=== PATIENT | male | born 1980 | race African-American/Black ===

== ENCOUNTER 2022-02-16 04:31 | Emergency (ER) | payer SELFPAY ==
[2022-02-16 04:37] VITALS: BP 177/111; PULSE 88; RESP 16; TEMP 37; O2SAT 99
--- NOTE | 2022-02-16 05:08 | ED.GENADULT ---
HPI - General Adult General Chief complaint: Extremity Injury, Lower Stated complaint: L lower extremity pain, sciatica? Time Seen by Provider: 02/16/22 04:52 History of Present Illness HPI narrative: This is a 41-year-old male presenting ED with a chief complaint of leg pain. Pain patient says that he has pain that is 10 in his left glute and radiates down the back of his leg. Patient weight lifts on a daily basis. He has never experienced pain like this before. Patient denies numbness tingling weakness. He denies urinary retention, loss of bowel continence, IV drug abuse, history of cancer, trauma fever chills. Patient is also complaining of pain beneath his testicles. patient is denies dysuria, hematuria, penile discharge. He denies history of STDs. He does have a history of an enlarged prostate but he has not had any issues lately. Related Data Home Medications Medication Instructions Recorded Confirmed lisinopril 10 1 tablet PO DAILY 02/16/22 mg-hydrochlorothiazide 12.5 mg tablet Allergies Allergy/AdvReac Type Severity Reaction Status Date / Time No Known Allergies Allergy Verified 02/16/22 04:47 Review of Systems Review of Systems: CONSTITUTIONAL: Denies night sweats. EYES: No eye pain ENT: Denies rhinorrhea CARDIOVASCULAR: Denies palpitations RESPIRATORY: Denies hemoptysis GASTROINTESTINAL: Denies hematemesis GENITOURINARY: Denies hematuria. SKIN: Denies rash MUSCULOSKELETAL: Denies myalgia. NEUROLOGIC: Denies weakness. PSYCHIATRIC: Denies delusions PMFSH Past Medical History Medical History Biceps muscle tear Enlarged prostate HTN (hypertension) Social History Social History (Updated 02/16/22 @ 05:54 by Stuart Morataya MD) Social History: patient denies use of alcohol tobacco or drugs Exam Narrative: APPEARANCE: No apparent distress. Head atraumatic. EYES: PERRLA/EOMI, NOSE: Normal no drainage NECK: Supple, Trachea midline RESPIRATORY: CTAB, No increased work of breathing. CARDIOVASCULAR: S1S2 appreciated ABDOMINAL: Soft, nontender, nondistended, Genital exam: no tenderness to palpation of the testicles. No swelling. Normal lie. There is no crepitus or evidence of infection. Rectal exam: revealed normal rectal tone but a tender prostate. MUSCULOSKELETAl: No obvious deformities NEURO: Alert. Cranial nerves 2-12 grossly intact. Sensation light touch, motor function cerebellar function intact for 4 extremities. Gait exam was normal. SKIN:: Warm, dry. Normal color PSYCHIATRIC: Normal affect Course Vital Signs Vital signs: Vital Signs Temperature 98.6 F 02/16/22 04:37 Pulse Rate 88 02/16/22 04:37 Respiratory Rate 16 02/16/22 04:37 Blood Pressure 177/111 H 02/16/22 04:37 Pulse Oximetry 99 02/16/22 04:37 Oxygen Delivery Room Air 02/16/22 04:37 Temperature 98.6 F 02/16/22 04:37 Pulse Rate 88 02/16/22 04:37 Respiratory Rate 16 02/16/22 04:37 Blood Pressure 177/111 H 02/16/22 04:37 Pulse Oximetry 99 02/16/22 04:37 Oxygen Delivery Room Air 02/16/22 04:37 Medical Decision Making MDM Narrative Medical decision making narrative: Was the patient is presenting with 2 different complaints. First complaint of pain shooting through his left glute and down his legs consistent with sciatica. we treated him with Motrin, Tylenol Robaxin and he had improvement of his pain. Patient's 2nd complaint had to do with pain beneath his testicles. Differential includes prostatitis, urinary tract infection, Sung's. A urinalysis was ordered. Urine was cloudy with +1 leuk esterase, 11-20 urine red blood cells and 31-50 white blood cells. At this time the patient's findings are concerning for prostatitis. when I questioned the patient about history of STDs he informed me that his partner had recently cheated on him and that he is concerned that this may be due to STDs.
[2022-02-16] MEDS: IBUPROFEN 400 MG TABLET 800 MG PO (05:15)
[2022-02-16] MEDS: methocarbamoL 750 MG TABLET 1500 MG PO (05:16)
[2022-02-16] MEDS: ACETAMINOPHEN 500 MG TABLET 1000 MG PO (05:16)
[2022-02-16 05:32] LABS: Appearance Urine Cloudy (Clear); Bilirubin Urine Negative (Negative); Blood Urine Negative (Negative); Color Urine Yellow (Yellow); Glucose Urine UA Negative (Negative); Ketones Urine Trace mg/dL (Negative); Leukocyte Esterase Ur 1+ LEU/UL (Negative); Nitrate Urine Negative (Negative); Protein Urine 1+ mg/dL (Negative)
[2022-02-16 05:36] LABS: Mucus Urine Rare /lpf; Squamous Epithelial Cell Urine Rare /hpf (Few); WBC Urine 31-50 /hpf
[2022-02-16 05:37] LABS: Add Urine Microscopic? YES
[2022-02-16] MEDS: cefTRIAXone 1 GM VIAL 0.5 GM IM (05:54)
[2022-02-16] MEDS: metroNIDAZOLE 250 MG TABLET 2000 MG PO (05:55)
[2022-02-16] MEDS: DOXYCYCLINE HYCLATE 100 MG TABLET PO (05:55)
== END 2022-02-16 06:24 | disposition home or self-care (01) ==
PROVIDERS: Emergency Provider Emergency Medicine
DX: M54.32 Sciatica, left side (principal); N41.0 Acute prostatitis; Z20.2 Contact with and (suspected) exposure to infections with a predominantly sexual mode of transmission; N40.0 Benign prostatic hyperplasia without lower urinary tract symptoms; I10 Essential (primary) hypertension
CPT/HCPCS: 81001; 87077; 87086; 87088; 87186; 87491; 87591; 96372; 99283; A9270; J0696

== ENCOUNTER 2025-05-02 08:52 | Inpatient (IN) | payer BC, SELFPAY ==
[2025-05-02] VITALS (9 sets, daily range): BP systolic 97–164; BP diastolic 67–96; PULSE 110–130; RESP 18–30; TEMP 37.1–39.8; O2SAT 93–99; BMI 30.6
--- NOTE | ~2025-05-02 | CT_ITS ---
EXAMINATION: CTA chest PE abdomen pel DATE: 05/02/2025 10:39 INDICATION: D-dimer and fever TECHNIQUE: Computed tomography angiography (CTA) of the chest was performed with 100 mL Omnipaque-350 intravenous contrast timed to evaluate the pulmonary arteries. Coronal maximum intensity projection 3D-reconstructions were created by the technologist. Computed tomography (CT) of the abdomen and pelvis was performed with intravenous contrast. The dose-length product was 2010.23 mGy-cm. COMPARISON: None. FINDINGS: CTA chest: No central or large pulmonary emboli present. Segmental and smaller sized pulmonary arteries somewhat poorly evaluated due to sharp tapering; mild to moderate cardiomegaly and mildly enlarged central and main pulmonary arteries. Pulmonary arterial enlargement may be associated with pulmonary arterial hypertension. No thoracic artery aneurysm or dissection. No pericardial effusion or bulky lymphadenopathy. Central large airways are patent. Mild atelectatic appearing changes but the lungs are otherwise clear. 10 mm granulomatous benign nodule left lung base. No acute process seen in the visualized portions of the upper abdomen, bony thorax or extrathoracic soft tissues. CT ABDOMEN AND PELVIS: No acute arterial occlusion seen. The bowel gas pattern is nonobstructive with no free air free fluid or pneumatosis. The urinary bladder is mildly distended. Mild urinary bladder wall thickening appears to be present. Normal size appendix, aorta and gallbladder. Pancreas spleen stomach and adrenal glands appear within normal limits. 2 cm simple right renal cyst. No hydroureteronephrosis or obstructing ureteral stones. No kidney or bladder stones. No bulky mesenteric or retroperitoneal lymphadenopathy or masses seen. Prostate size normal. Diffuse degenerative changes throughout the lumbar spine and hips. IMPRESSION: 1. No central or large pulmonary emboli. 2. Mild to moderate cardiomegaly. Mildly enlarged central and main pulmonary arteries which could be associated pulmonary arterial hypertension. No gross acute intrathoracic process. 3. Mildly distended urinary bladder with possible mild wall thickening. Correlate with urinalysis. 4. No acute surgical abnormality seen in the abdomen or pelvis. Reviewed, dictated and finalized at location A. [facility] IMPRESSION: 1. No central or large pulmonary emboli. 2. Mild to moderate cardiomegaly. Mildly enlarged central and main pulmonary ar teries which could be associated pulmonary arterial hypertension. No gross acut e intrathoracic process. 3. Mildly distended urinary bladder with possible mild wall thickening. Correla te with urinalysis. 4. No acute surgical abnormality seen in the abdomen or pelvis.
--- NOTE | ~2025-05-02 | XR_ITS ---
Examination: XR chest 1V portable Clinical History: SOB and Tachycardic Comparison: 05/02/2025 Technique: Portable AP Findings: Cardiomegaly. Lungs clear. No acute bony abnormality. IMPRESSION: 1. No acute cardiopulmonary findings given portable technique. Reviewed, dictated and finalized at location R. ER POT
--- NOTE | ~2025-05-02 | XR_ITS ---
Examination: XR chest 1V portable Clinical History: SOB, HEART ATTACK 2 YEARS AGO, CP Comparison: None Technique: Portable AP Findings: Heart size prominent. Lungs clear. No acute bony abnormality. IMPRESSION: 1. Cardiac silhouette mildly prominent. Pericardial effusion and/or cardiomegaly not excluded. 2. Lungs clear. Reviewed, dictated and finalized at location R. OVOLTAIC POWER SYSTEMS ENGINEER IMPRESSION: 1. Cardiac silhouette mildly prominent. Pericardial effusion and/or cardiomega ly not excluded. 2. Lungs clear.
--- NOTE | 2025-05-02 09:03 | ED.GENADULT ---
HPI - General Adult General Chief complaint: Shortness of Breath/Dyspnea Stated complaint: SOB Time Seen by Provider: 05/02/25 08:55 History of Present Illness HPI narrative: 44-year-old male presents to the emergency department for evaluation for shortness of breath patient reports prior to arrival he had onset shortness of breath chills and patient was febrile upon arrival to the emergency department. Patient denies any recent illnesses. Patient does report prior history of urinary retention. Related Data Home Medications ?Medication ?Instructions ?Recorded ?Confirmed ?Last Taken ?Type atorvastatin 80 mg tablet 80 mg PO DAILY 05/02/25 05/02/25 05/01/25 21:48 History azelastine 137 mcg (0.1 %) nasal 1 spray intranasal Q12H PRN 05/02/25 05/02/25 04/25/25 08:49 History spray congestion lisinopril 20 mg tablet 20 mg PO DAILY 05/02/25 05/02/25 05/02/25 History metformin 500 mg tablet 500 mg PO DAILY 05/02/25 05/02/25 05/02/25 History Allergies Allergy/AdvReac Type Severity Reaction Status Date / Time No Known Allergies Allergy Verified 05/02/25 15:43 Review of Systems Review of Systems: All systems reviewed & are unremarkable except as noted in HPI and below PMFSH Past Medical History Medical History Biceps muscle tear Enlarged prostate HTN (hypertension) Social History Social History (Updated 02/16/22 @ 05:54 by Stuart Morataya MD) Social History: patient denies use of alcohol tobacco or drugs Smoking status: Never smoker Alcohol intake: never Substance use: never Lack of Transportation: No Lack of Food: Never True Current Housing: I Have Housing Concerned About Future Housing: No Difficulty Paying Gas/Electric Bills: No Difficulty Paying for Meds: No Currently Unemployed: No Education: Trade/Vocational Certificate Difficulty w/ Childcare or Family Care: No Spiritual care concerns: No Exam Narrative: APPEARANCE: Ill-appearing HEAD: normocephalic, atraumatic. EYES: PERRLA/EOMI, conjunctivae clear. NOSE: Normal no drainage EARS:TMS clear with good light reflex. THROAT: Pharynx clear, no exudate. NECK: Supple. No adenopathy, no masses. RESPIRATORY: Airway patent, respirations nonlabored. Clear to auscultation bilaterally, no rales, rhonchi, wheezing. CARDIOVASCULAR: Regular rate and rhythm without murmurs rubs or gallops. ABDOMINAL: Soft, nontender, nondistended, normal bowel sounds MUSCULOSKELETAL: Moves all extremities. Strength/ROM intact, No edema, No calf tenderness. NEURO: Alert. Cranial nerves II through XII intact. Good gait. Good coordination SKIN: Warm, dry. Normal Color Course Vital Signs Vital signs: Vital Signs Temperature 103.6 F H 05/02/25 08:57 Pulse Rate 130 H 05/02/25 08:57 Respiratory Rate 19 05/02/25 08:57 Pulse Oximetry 99 05/02/25 08:57 Oxygen Delivery Room Air 05/02/25 08:57 Temperature 98.8 F 05/02/25 11:00 Pulse Rate 111 H 05/02/25 14:45 Respiratory Rate 27 H 05/02/25 14:45 Blood Pressure 120/74 05/02/25 14:45 Pulse Oximetry 96 05/02/25 14:45 Oxygen Delivery Room Air 05/02/25 09:18 MDM MDM Narrative Medical decision making narrative: 44-year-old male presents to the with evaluation of fever and urinary tension. Patient is currently afebrile with no leukocytosis hemoglobin of 14.2. Patient has elevated D-dimer but CT was negative for pulmonary embolism. Patient was negative for gonorrhea chlamydia influenza a influenza B RSV and COVID. UA was positive for urinary tract infection. Patient was treated with 1 g of IV Rocephin the emergency department. Patient was also treated with 1 g of Tylenol. Patient was treated with 2 L of lactated Ringer's. On re-evaluation patient is resting more comfortably. Patient was offered admission for pyelonephritis but patient declines and prefers to be discharged to home. Patient and family were updated the results of the workup and the importance of return to the emergency department if he has any worsening symptoms. Patient was also be provided outpatient follow-up with Urology. Patient did have greater than 300 mL of retained urine. Believe patient's respiratory symptoms were secondary to the fever and tachycardia. At time of re-evaluation patient denies any chest pain or shortness of breath. Patient's urine is significant for a UTI. Prior to discharge patient did change his mind and decided he would stay for further IV antibiotics. Patient still declines the Hughes catheter placement. Case was discussed with the hospitalist patient was accepted for admission. Differential Diagnosis Differential Diagnosis: Pneumonia, COVID, RSV, influenza, gonorrhea, chlamydia, urinary tract infection, urinary retention Lab Data [facility] Lab Attestation statement: I personally reviewed the patient's lab results. 05/02/25 09:14 05/02/25 09:14 Labs: Lab Results 05/02/25 05/02/25 05/02/25 Range/Units 09:14 09:50 11:57 WBC 3.3 L (4.5-10.0) K/mm3 RBC 5.15 (4.6-6.20) M/mm3 Hgb 14.2 (14.0-18.0) g/dL Hct 43.7 (42.0-52.0) % MCV 84.9 (80-100) fl MCH 27.6 (26-34) pg MCHC 32.5 (32-36) g/dl RDW 15.3 H (11.5-14.5) % Plt Count 188 (150-375) k/mm3 MPV 9.6 (7.4-10.4) fl Immature Gran % (Auto) 0.3 (0-0.5) % Neut % (Auto) 81.6 H (45.5-73.1) % Lymph % (Auto) 16.3 L (18.3-44.2) % [place] % (Auto) 0.3 L (2.6-8.5) % Eos % (Auto) 1.2 (0-4.4) % Baso % (Auto) 0.3 (0.2-1.2) % Lymph # (Auto) 0.53 L (0.9-3.2) K/mm3 [place] # (Auto) 0.0 L (0.1-0.6) K/mm3 Eos # (Auto) 0.0 (0-0.3) K/mm3 Baso # (Auto) 0.0 (0.0-0.1) K/mm3 Abs Immat Gran (auto) 0.01 (0.00-0.031) K/mm3 Absolute Neuts (auto) 2.7 (1.3-6.7) K/mm3 Absolute Nucleated RBC 0.000 (0.0-0.012) K/mm3 Nucleated RBC % 0.0 (0.0-0.2) % PT 13.6 (11.1-14.7) Seconds INR 1.0 APTT 24.2 (22.3-36.8) Seconds D-Dimer 0.93 H (<0.48) ug/mL Sodium 143 (137-145) mmol/L Potassium 3.9 (3.4-5.0) mmol/L Chloride 105 (98-107) mmol/L Carbon Dioxide 28 (22-30) mmol/L Anion Gap 10 (4-12) mmol/L BUN 16 (9-20) mg/dL Creatinine 1.34 H (0.7-1.3) mg/dL Estim Creat Clear Calc 70 ml/min Estimated GFR 57 L (59 - ) Glucose 99 (65-110) mg/dL Lactic Acid 2.6 H 1.5 (0.7-2.0) mmol/L Calcium 9.3 (8.4-10.2) mg/dL Magnesium 1.8 (1.6-2.3) mg/dL Total Bilirubin 0.8 (0.2-1.3) mg/dL AST 52 (17-59) U/L ALT 43 (6-50) U/L Alkaline Phosphatase 89 (38-126) U/L Total Protein 7.9 (6.3-8.2) g/dL Albumin 4.5 (3.5-5.1) g/dL TSH (Reflex) 0.887 (0.465-4.68) uIU/mL Urine Color Yellow (Yellow) Urine Appearance Cloudy H (Clear) Urine pH 7.0 (5.0-9.0) Ur Specific [place] 1.018 (1.001-1.035) Urine Protein Trace (Negative) mg/dL Urine Glucose (UA) Negative (Negative) mg/dL Urine Ketones Trace H (Negative) mg/dL Ur Blood (Man) Non-hemolyzed trace (Negative) Urine Nitrate Positive H (Negative) Urine Bilirubin Negative (Negative) Urine Urobilinogen 1.0 (<2.0) mg/dL Leukocyte Esterase Rfl 2+ H (Negative) CHARANJIT/UL Urine RBC 0-2 (0-2) /hpf Urine WBC >100 H (0-3) /hpf Ur Squamous Epith Cells None seen (Few) /hpf Urine Bacteria 4+ H /hpf Urine Casts 0-2 C. trachomatis (PCR) Not detected (NOT DETECTE) Influenza A (RT-PCR) Negative (Negative) Influenza B (RT-PCR) Negative (Negative) N. gonorrhoeae (PCR) Not detected (NOT DETECTE) RSV (RT-PCR) Negative (Negative) SARS-CoV-2 RNA (RT-PCR) Negative (Negative) Imaging Data Radiologist's impression: ITS Impressions Chest X-Ray 05/02/25 09:27 IMPRESSION: 1. Cardiac silhouette mildly prominent. Pericardial effusion and/or cardiomegaly not excluded. 2. Lungs clear. Chest/Abdomen/Pelvis CTA 05/02/25 10:45 IMPRESSION: 1. No central or large pulmonary emboli. 2. Mild to moderate cardiomegaly. Mildly enlarged central and main pulmonary arteries which could be associated pulmonary arterial hypertension. No gross acute intrathoracic process. 3. Mildly distended urinary bladder with possible mild wall thickening. Correlate with urinalysis. 4. No acute surgical abnormality seen in the abdomen or pelvis. Discharge Plan Discharge Clinical Impression: Acute UTI Sepsis Qualifiers: Sepsis type: sepsis due to unspecified organism Sepsis acute organ dysfunction status: without acute organ dysfunction Qualified Code(s): A41.9 - Sepsis, unspecified organism Patient Disposition: Still a Patient Condition: Stable
--- NOTE | 2025-05-02 09:04 | ECG_ITS ---
Test Date: 2025-05-02 09:06:21 Measurements Intervals [place] Rate: 127 P: 53 MS: 156 QRS: -34 QRSD: 117 T: 79 QT: 313 QTc: 456 Interpretive Statements SINUS TACHYCARDIA LEFT AXIS DEVIATION INTRAVENTRICULAR CONDUCTION DELAY LEFT VENTRICULAR HYPERTROPHY NONSPECIFIC T-WAVE ABNORMALITY- HIGH LATERAL LEADS BASELINE ARTIFACT- I, II, III, AVR, AVL, AVF, V1-V ABNORMAL ECG No previous ECG available for comparison Electronically Signed On 05-02-2025 09:11:26 OVERLOCK COLLAR SETTER by Sanchez Tatum D.O.
[2025-05-02] MEDS: LACTATED RINGERS 1,000 ML 999 ML IV CONT ×2 (09:08)
[2025-05-02] MEDS: ACETAMINOPHEN 500 MG TABLET 1000 MG PO (09:08)
[2025-05-02] MEDS: ONDANSETRON INJ 4 MG/2 ML VIAL IV PUSH (09:13)
[2025-05-02 09:22] LABS: Hematocrit 43.7 % (42.0-52.0); Hemoglobin 14.2 g/dL (14.0-18.0); Immature Granulocyte Percent A 0.3 % (0-0.5); Lymphocytes Absolute Auto 0.53 K/mm3 (0.9-3.2); Mean Corpuscular HGB Conc 32.5 g/dl (32-36); Mean Corpuscular Hemoglobin 27.6 pg (26-34); Mean Corpuscular Volume 84.9 fl (80-100); Nucleated Red Blood Cells Absolute Auto 0.000 K/mm3 (0.0-0.012); Nucleated Red Blood Cells Perc 0.0 % (0.0-0.2); Platelet Count Result 188 k/mm3 (150-375); Red Blood Count 5.15 M/mm3 (4.6-6.20); White Blood Count 3.3 K/mm3 (4.5-10.0)
[2025-05-02 09:37] LABS: INR 1.0; Prothrombin Time 13.6 Seconds (11.1-14.7)
[2025-05-02 09:38] LABS: Partial Thromboplastin Time 24.2 Seconds (22.3-36.8)
[2025-05-02 09:45] LABS: Alanine Aminotransferase 43 U/L (6-50); Albumin Level 4.5 g/dL (3.5-5.1); Alkaline Phosphatase 89 U/L (38-126); Anion Gap 10 mmol/L (4-12); Aspartate Amino Transferase 52 U/L (17-59); Bilirubin,Total 0.8 mg/dL (0.2-1.3); Blood Urea Nitrogen 16 mg/dL (9-20); Calcium 9.3 mg/dL (8.4-10.2); Carbon Dioxide 28 mmol/L (22-30); Chloride 105 mmol/L (98-107); Estimated CRCL calculation 70 ml/min; Estimated Glomerular Filt Rate 57; Glucose 99 mg/dL (65-110); Magnesium 1.8 mg/dL (1.6-2.3); Potassium 3.9 mmol/L (3.4-5.0); Sodium 143 mmol/L (137-145); Total Protein 7.9 g/dL (6.3-8.2)
[2025-05-02 09:58] LABS: Influenza A QL RT-PCR Negative (Negative); Influenza B QL RT-PCR Negative (Negative); RSV RNA, RT-PCR Negative (Negative); SARS-CoV-2 RNA PCR Negative (Negative)
[2025-05-02 10:01] LABS: Add Urine Microscopic? YES; Appearance Urine Cloudy (Clear); Glucose Urine UA Negative (Negative); Leukocyte Esterase Ur 2+ LEU/UL (Negative); Nitrate Urine Positive (Negative); Non Pathogenic Casts 0-2; Specific Grav Ur 1.018 (1.001-1.035)
[2025-05-02 10:14] LABS: Thyroid Stimulating Hormone Reflex 0.887 uIU/mL (0.465-4.68)
[2025-05-02] MEDS: ACETAMINOPHEN 650 MG SUPPOSITORY RECTAL (10:24)
--- OUTSIDE RECORDS SUMMARY | 2025-05-02 10:40 | XMS_ITS | Encounter Summary ---
Author Organization [facility] Address [facility] [place] [address] Care Team Providers Care Peach Grower Name Role Phone Taryn Mcneal MD Primary Care Provider [phone] Encounter Details Date Type Department Care Team (Latest Contact Info) Description 08/18/2024 AzulStart Message Enc [facility] Multispec[facility] - [place] [address] [place] [address] [address] [place] [address] Taryn Mcneal MD [address] [facility] [address] [place], [place] [id number] Missed appointment Social History Tobacco Use Types Packs/Day Years Used Date Smoking Tobacco: Never Smokeless Tobacco: Never Comments:Counseled by dr Susanna cassidy Alcohol Use Standard Drinks/Week Comments Never 0 (1 standard drink = 0.6 oz pur e alcohol) PHQ-2 Answer Date Recorded Patient Health Questionnaire-2 Score 0 07/12/2024 Sex and Gender Information Value Date Recorded Sex Assigned at Male 06/16/2024 10:06 AM PROCESSOR INSPECTOR Legal Sex Male 10:00 AM PROCESSOR INSPECTOR Gender Identity Male 07/12/2024 2:46 PM PROCESSOR INSPECTOR Sexual Orientation Straight 07/12/2024 2: 46 PM PROCESSOR INSPECTOR documented as of this encounter Progress Notes * Rosy Rainey - 08/21/2024 7:24 AM CDT Attempted to call patient to schedule. Voicemail was full so unable to leave message. documented in this encounter Plan of Treatment Upcoming Encounters Date Type Department Care Team (Late st Contact Info) Description 06/21/2025 11:00 AM PROCESSOR INSPECTOR Office Visit [facility] [address] [place] [address] Jostin Thompson MD [address] [place] [address] 08/03/2025 3:20 PM CDT Office Visit [facility] - [place] [address] [address] [place] [address] Taryn Mcneal MD [address] [place] [id number] documented as of this encounter Visit Diagnoses Not on filedocumented in this encounter Additional Health Concerns Assessment Noted Time PHQ-9 Depression Total Score: 1 08/16/19 24 7:46 AM CDT documented as of this encounter Care Teams Peach Grower Relationship Specialty Start Date End Date Taryn Mcneal MD [address] [place] [id number] PCP - General INTERNAL MEDICINE 07/06/22 documented as of this encounter
--- OUTSIDE RECORDS SUMMARY | 2025-05-02 10:40 | XMS_ITS | Encounter Summary ---
Author Organization [facility] Address [facility] [place] [address] Care Team Providers Care Motor Vehicle Clerk Name Role Phone Taryn Mcneal MD Primary Care Provider [phone] Encounter Details Date Type Department Care Team (Late st Contact Info) Description 01/20/2025 MyChart Message Enc [facility] Multispecialty Care - [place] [address] [place] [address] [address] [place], [place] [id number] Taryn Mcneal MD [address] [facility] [address] [place] [address] Eye drops Social History Tobacco Use Types Packs/Day Years Used Date Smoking Tobacco: Never Smokeless Tobacco: Never Comments:Counseled by dr Susanna cassidy Alcohol Use Standard Drinks/Week Comments Never 0 (1 standard drink = 0.6 oz pur e alcohol) PHQ-2 Answer Date Recorded Patient Health Questionnaire-2 Score 0 01/19/2025 Sex and Gender Information Value Date Recorded Sex Assigned at Male 06/16/2024 10:06 AM WASTEWATER DESIGN ENGINEER Legal Sex Male 10:00 AM WASTEWATER DESIGN ENGINEER Gender Identity Male 07/12/2024 2:46 PM WASTEWATER DESIGN ENGINEER Sexual Orientation Straight 07/12/2024 2: 46 PM WASTEWATER DESIGN ENGINEER documented as of this encounter Plan of Treatment Upcoming Encounters Date Type Department Care Team (Late st Contact Info) Description 06/21/2025 11:00 AM WASTEWATER DESIGN ENGINEER [facility] [address] Jostin Thompson MD [facility] [address] [place] [address] 08/03/2025 3:20 PM CDT Office Visit [facility] Multispecialty Care - [place] [address] [address] [place] [address] Taryn Mcneal MD [address] [place] [id number] documented as of this encounter Visit Diagnoses Not on filedocumented in this encounter Additional Health Concerns Assessment Noted Time PHQ-9 Depression Total Score: 2 01/20/20 25 3:51 PM CDT documented as of this encounter Care Teams Motor Vehicle Clerk Relationship Specialty Start Date End Date Taryn Mcneal MD [address] [place] [id number] PCP - General INTERNAL MEDICINE 07/06/22 documented as of this encounter
--- OUTSIDE RECORDS SUMMARY | 2025-05-02 10:40 | XMS_ITS | Clinical Summary ---
Author Organization [facility] Address [address] [place] [address] Care Team Providers Care Byproducts Extractor Name Role Phone Taryn Mcneal MD Primary Care Provider [phone] Allergies No known active allergies Medications ASPIRIN 81 OR Take 81 mg by mouth daily. Active olopatadine (PATANOL) 0.1 % ophthalmic solutionIndication s:Seasonal allergies Place 1 drop into both eyes 2 (two) times daily. 5 mL 6 01/20/20 25 Active Roflumilast 0.15 % CreamIndications:P soriasis Apply 1 Application topically daily. 60 g 3 01/20/20 25 Active lisinopril (PRINIVIL) 20 MG tabletIndications: Primary hypertension Take 1 tablet (20 mg total) by mouth daily. 90 tablet 1 01/20/20 25 Active metFORMIN (GLUCOPHAGE) 500 MG tabletIndications: Prediabetes Take 1 tablet (500 mg total) by mouth daily with breakfast. 90 tablet 1 01/20/20 25 Active montelukast (SINGULAIR) 10 MG tabletIndications: Seasonal allergies Take 1 tablet (10 mg total) by mouth nightly at bedtime. 90 tablet 1 01/20/20 25 Active metoprolol succinate ER (TOPROL-XL) 25 MG 24 hr tabletIndications: Primary hypertension Take 1 tablet (25 mg total) by mouth daily. 90 tablet 1 02/15/20 25 Active fluticasone propionate (FLONASE) 50 MCG/ACT nasal sprayIndications:S easonal allergies 2 sprays by Nasal route daily. 48 mL 3 02/15/20 25 Active famotidine (PEPCID) 20 MG tabletIndications: Gastroesophageal reflux disease without esophagitis Take 1 tablet (20 mg total) by mouth 2 (two) times daily as needed for Heartburn. 60 tablet 5 02/15/20 25 Active azelastine (ASTELIN) 0.1 % nasal sprayIndications:S easonal allergies 2 sprays by Nasal route 2 (two) times daily. Use in each nostril as directed 60 mL 3 02/15/20 25 Active atorvastatin (LIPITOR) 80 MG tabletIndications: Mixed hyperlipidemia Take 1 tablet (80 mg total) by mouth nightly at bedtime. 90 tablet 1 04/18/20 25 026 Active atorvastatin (LIPITOR) 80 MG tabletIndications: Mixed hyperlipidemia Take 1 tablet (80 mg total) by mouth nightly at bedtime. 90 tablet 3 01/20/20 25 025 Discontin ued(Reord er) Active Problems Problem Noted Date Diagnosed Date HFrEF (heart failure with reduced ejection fract ion) 08/09/2023 Mixed hyperlipidemia 06/19/2022 Prediabetes 06/19/2022 Hypertension Encounters Date Type Department Care Team Description 04/05/2025 Telephone [facility] [place] [address] [place] [address] Taryn Mcneal MD Advice (Nurse Triage - After Hours ([id number])/) 02/14/2025 Orders Only [facility] [place] [address] [place] [address] Dacia Flood MA from Last 3 Months Immunizations Immunization Administration Dates Next Due Dtap (Acel-Immune) 05/03/1979,1978 Hepatitis B Vaccine Adult 02/10/2007,11/10/2000, 09/30/2000 MMR (MMRII) 08/08/1981 Polio Opv (Generic) 05/03/1979,1978 Td (TDVAX) 02/10/2007,05/31/1992 Tdap (Generic) 10/18/2018 Family History Medical History Relation Comments Diabetes Brother Diabetes Daughter No Known Problems Father Diabetes Mother Heart Disease Mother Heart Attack Sister Relation Status Comments Brother Alive Daughter Alive Father Alive Mother Alive Sister Alive Social History Tobacco Use Types Packs/Day Years Used Date Smoking Tobacco: Never Smokeless Tobacco: Never Tobacco Cessation:Counseling Given: No Comments:Counseled by dr Mcneal Alcohol Use Standard Drinks/Week Comments Never 0 (1 standard drink = 0.6 oz pur e alcohol) PHQ-2 Answer Date Recorded Patient Health Questionnaire-2 Score 0 01/19/2025 Sex and Gender Information Value Date Recorded Sex Assigned at Male 06/16/2024 10:06 AM AIR HOIST OPERATOR Legal Sex Male 10:00 AM AIR HOIST OPERATOR Gender Identity Male 07/12/2024 2:46 PM AIR HOIST OPERATOR Sexual Orientation Straight 07/12/2024 2: 46 PM AIR HOIST OPERATOR Last Filed Vital Signs Vital Sign Reading Time Taken Comments Blood Pressure 132/82 01/19/2025 3:08 PM CDT Pulse 79 01/19/2025 3:08 PM CDT Temperature 36.6 C (97.9 F) 01/19/2025 3:08 PM CDT Respiratory Rate 18 01/19/2025 3:08 PM CDT Oxygen Saturation 98% 01/19/2025 3:08 PM CDT Inhaled Oxygen Concentration - - Weight 94.6 kg (208 lb 9.6 oz) 01/19/2025 3:08 P M CDT Height 177.8 cm (5' 10) 01/19/2025 3:08 PM CDT Body Mass Index 29.93 01/19/2025 3:08 PM CDT Plan of Treatment Upcoming Encounters Date Type Department Care Team (Late st Contact Info) Description 06/21/2025 11:00 AM AIR HOIST OPERATOR Office Visit [facility], [address] [place] [address] Jostin Thompson MD [facility] [address] [place] [address] 08/03/2025 3:20 PM CDT Office Visit [facility] [place] [address] [address] [place] [address] Taryn Mcneal MD [address] [place] [address] [address] [place] [address] Health Maintenance Due Date Last Done Comments Pneumococcal Vaccine: Pediatrics (0 to 5 Years) and At-Risk Patients (6 to 49 Years) (1 of 2 - PCV) 1997 COVID-19 Vaccine (1 - 2024- season) 2025 Influenza Adult (#1) 2025 Annual Physical 01/19/2026 01/19/2025, 04/0 05/2023, 06/17/2022 Colorectal Cancer Screening FIT-DNA (3 Years) 02/07/2028 02/06/2025 DTaP, Tdap and Td Vaccines (5 - Td or Tdap) 10/18/2028 10/18/2018, 02/10/2007, 05/31/1992, Additional history exists Hepatitis B Vaccines Completed 02/10/2007, 11/10/2000, 09/30/2000 Hepatitis C Completed 06/19/2022 PHQ-2 (Physician [place]) Completed 01/19/2025 Hepatitis A Vaccines Aged Out No long er eligible based on patient's age to complete this topic Meningococcal B Vaccine Aged Out No l onger eligible based on patient's age to complete this topic Meningococcal Vaccine Aged Out No gerry oz eligible based on patient's age to complete this topic RSV Immunizations Under 20 Months Aged Out No longer eligible based on patient's age to complete this topic Procedures Procedure Name Priority Date/Time Associated Diagnosis Comments COLOGUARD (EXACT SCIENCE) Routine 02/06/2025 12:50 PM CDT Screen for colon cancer HEPATITIS C ANTIBODY Routine 06/19/2022 8:33 AM AIR HOIST OPERATOR Annual physical exam Establishing care with new doctor, encounter for Routine general medical examination at a health care facility Encounter for hepatitis C screening test for low risk patient from Last 3 Months or Most Recently Relevant to Health Maintenance Results * COLOGUARD (EXACT SCIENCE) (02/06/2025 12:50 PM CDT) COLOGUARD RESULT Negative Negative [facility] (CLIA #:[id number]) Comment: The Cologuard (TM) test was performed on this specimen. NEGATIVE TEST RESULT. A negative Cologuard result indicates a low likelihood that a colorectal cancer (CRC) or advanced adenoma (adenomatous polyps with more advanced pre-malignant features) is present. The chance that a person with a negative Cologuard test has a colorectal cancer is less than 1 in 1500 (negative predictive value >99.9%) or has an advanced adenoma is less than 5.3% (negative predictive value 94.7%). These data are based on a prospective cross-sectional study of 10,000 individuals at average risk for colorectal cancer who were screened with both Cologuard and colonoscopy. (Naomie Us al, N Engl J Med 2014;370(14):1286- 1297) The normal value (reference range) for this assay is negative. COLOGUARD RE-SCREENING RECOMMENDATION: Periodic colorectal cancer screening is an important part of preventive healthcare for asymptomatic individuals at average risk for colorectal cancer. Following a negative Cologuard result, the [place] Cancer Society and U.S. Multi-Society Task Force screening guidelines recommend a Cologuard re-screening interval of 3 years. References: [place] Cancer Society Guideline for Colorectal Cancer Screening: https://www.cancer.org/cancer/obsat-witjpm-xipagz/ohtxevodh-djpwdtdjz-dwjnsoe/ac s-rec ommendations.html.; Miller DK, Adonis LERMA, Dominic FranklinK, Colorectal Cancer Screening: Recommendations for Physicians and Patients from the U.S. Multi-Society Task Force on Colorectal Cancer Screening , Am J Gastroenterology 2017; 112:6006-3950. TEST DESCRIPTION: Composite algorithmic analysis of stool DNA-biomarkers with hemoglobin immunoassay. Quantitative values of individual biomarkers are not reportable and are not associated with individual biomarker result reference ranges. Cologuard is intended for colorectal cancer screening of adults of either sex, 45 years or older, who are at average-risk for colorectal cancer (CRC). Cologuard has been approved for use by the U.S. FDA. The performance of Cologuard was established in a cross sectional study of average-risk adults aged 50-84. Cologuard performance in patients ages 45 to 49 years was estimated by sub-group analysis of near-age groups. Colonoscopies performed for a positive result may find as the most clinically significant lesion: colorectal cancer [4.0%], advanced adenoma (including sessile serrated polyps greater than or equal to 1cm diameter) [20%] or non- advanced adenoma [31%]; or no colorectal neoplasia [45%]. These estimates are derived from a prospective cross-sectional screening study of 10,000 individuals at average risk for colorectal cancer who were screened with both Cologuard and colonoscopy. (Naomie Us al, N Engl J Med 2014;370(14):1081-4805.) Cologuard may produce a false negative or false positive result (no colorectal cancer or precancerous polyp present at colonoscopy follow up). A negative Cologuard test result does not guarantee the absence of CRC or advanced adenoma (pre-cancer). The current Cologuard screening interval is every 3 years. ([place] Cancer Society and U.S. Multi-Society Task Force). Cologuard performance data in a 10,000 patient pivotal study using colonoscopy as the reference method can be accessed at the following location: www.[employer]right [employer]/results. Additional description of the Cologuard test process, warnings and precautions can be found at www.[employer]Com[employer]EMOV[employer]rd.[employer]. STOOL STOOL SPECIMEN / Unknown 02/06/2025 12:50 PM CDT 02/07/2025 12:14 PM CDT us Taryn Mcneal MD BODY FLUIDS AND STOOLS ORDERABLE S Final Result Performing Organization Address City/[facility] Co de Phone Number [employer], [facility] [address] [place] [address], [place] [phone] [employer] (CLIA #:[id number]) [address] [place] [address] * HEPATITIS C ANTIBODY (06/19/2022 8:33 AM AIR HOIST OPERATOR) HEPATITIS C AB NON-REACTI VE NON-REACT VANDANA 06/19/2022 4:42 PM AIR HOIST OPERATOR [facility] Comment: ANTIBODIES TO HCV NOT DETECTED. DOES NOT EXCLUDE THE POSSIBILITY OF EXPOSURE TO HCV. 06/19/2022 8:33 AM AIR HOIST OPERATOR us Taryn Mcneal MD LABORATORY Final Result [facility] [address] [place] [address], [id number] from Last 3 Months or Most Recently Relevant to Health Maintenance Insurance Care Teams Byproducts Extractor Relationship Specialty Start Date End Date Taryn Mcneal MD [address] [facility] [address] [place] [address] PCP - General INTERNAL MEDICINE 07/06/22
--- OUTSIDE RECORDS SUMMARY | 2025-05-02 10:40 | XMS_ITS | Encounter Summary ---
Author Organization [facility] Address [facility] [place] [address] Care Team Providers Care Grades 1 Thru 6 Home Teacher Name Role Phone Taryn Mcneal MD Primary Care Provider [phone] Encounter Details Date Type Department Care Team (Late st Contact Info) Description 12/07/2022 Bounce Exchange Message Enc [facility] - [address] [place] [address] [employer], [facility] Provider Lab Results Social History Tobacco Use Types Packs/Day Years Used Date Smoking Tobacco: Never Smokeless Tobacco: Never Comments:Counseled by dr Susanna cassidy Alcohol Use Standard Drinks/Week Comments Never 0 (1 standard drink = 0.6 oz pur e alcohol) PHQ-2 Answer Date Recorded Patient Health Questionnaire-2 Score 0 06/17/2022 Sex and Gender Information Value Date Recorded Sex Assigned at Male 06/16/2024 10:06 AM FLAT KNITTER HELPER Legal Sex Male 10:00 AM FLAT KNITTER HELPER Gender Identity Male 07/12/2024 2:46 PM FLAT KNITTER HELPER Sexual Orientation Straight 07/12/2024 2: 46 PM FLAT KNITTER HELPER documented as of this encounter Plan of Treatment Upcoming Encounters Date Type Department Care Team (Late st Contact Info) Description 06/21/2025 11:00 AM FLAT KNITTER HELPER Office [facility], [address] [place], [place] [id number] Jostin Thompson MD [facility] [address] [place], [place] [id number] 08/03/2025 3:20 PM CDT Office Visit [facility] [place] [address] [address] [place] [address] Taryn Mcneal MD [facility] [address] documented as of this encounter Visit Diagnoses Not on filedocumented in this encounter Care Teams Grades 1 Thru 6 Home Teacher Relationship Specialty Start Date End Date Taryn Mcneal MD [address] [place] [address] PCP - General INTERNAL MEDICINE 07/06/22 documented as of this encounter
--- OUTSIDE RECORDS SUMMARY | 2025-05-02 10:40 | XMS_ITS | Encounter Summary ---
Author Organization [facility] Address [facility] [place] [address] Care Team Providers Care Winch Truck Operator Name Role Phone Taryn Mcneal MD Primary Care Provider Encounter Details Date Type Department Care Team (Late st Contact Info) Description 10/23/2024 MyChart Message Enc [facility] Care [place] [address] [place] [address] [address] [place], [place] [phone] Taryn Mcneal MD [address] [facility] [address] [place] [address] Physical Social History Tobacco Use Types Packs/Day Years Used Date Smoking Tobacco: Never Smokeless Tobacco: Never Comments:Counseled by dr Susanna cassidy Alcohol Use Standard Drinks/Week Comments Never 0 (1 standard drink = 0.6 oz pur e alcohol) PHQ-2 Answer Date Recorded Patient Health Questionnaire-2 Score 0 07/12/2024 Sex and Gender Information Value Date Recorded Sex Assigned at Male 06/16/2024 10:06 AM MANAGER ACADEMIC Legal Sex Male 10:00 AM MANAGER ACADEMIC Gender Identity Male 07/12/2024 2:46 PM MANAGER ACADEMIC Sexual Orientation Straight 07/12/2024 2: 46 PM MANAGER ACADEMIC documented as of this encounter Plan of Treatment Upcoming Encounters Date Type Department Care Team (Late st Contact Info) Description 06/21/2025 11:00 AM MANAGER ACADEMIC [facility], [address] [address] Jostin Thompson MD [facility] [address] [place] [address] 08/03/2025 3:20 PM CDT Office Visit [facility] - [place] [address] [address] [place] [address] Taryn Mcneal MD [address] [place] [address] documented as of this encounter Visit Diagnoses Not on filedocumented in this encounter Additional Health Concerns Assessment Noted Time PHQ-9 Depression Total Score: 1 08/16/19 24 7:46 AM CDT documented as of this encounter Care Teams Winch Truck Operator Relationship Specialty Start Date End Date Taryn Mcneal MD [address] [place] [address] PCP - General INTERNAL MEDICINE 07/06/22 documented as of this encounter
--- OUTSIDE RECORDS SUMMARY | 2025-05-02 10:40 | XMS_ITS | Encounter Summary ---
Author Organization [facility] Address [facility] [place] [address] Care Team Providers Care Test Driller Name Role Phone Taryn Mcneal MD Primary Care Provider [phone] Encounter Details Date Type Department Care Team (Late st Contact Info) Description 09/01/2023 [employer] Message Enc [facility]pec[facility] Care - [address] [place] [address] Mychart, [facility] Provider Lab Results Social History Tobacco Use Types Packs/Day Years Used Date Smoking Tobacco: Never Smokeless Tobacco: Never Comments:Counseled by dr Susanna cassidy Alcohol Use Standard Drinks/Week Comments Never 0 (1 standard drink = 0.6 oz pur e alcohol) PHQ-2 Answer Date Recorded Patient Health Questionnaire-2 Score 0 08/16/2023 Sex and Gender Information Value Date Recorded Sex Assigned at Male 06/16/2024 10:06 AM INVESTIGATION OFFICER Legal Sex Male 10:00 AM INVESTIGATION OFFICER Gender Identity Male 07/12/2024 2:46 PM INVESTIGATION OFFICER Sexual Orientation Straight 07/12/2024 2: 46 PM INVESTIGATION OFFICER documented as of this encounter Plan of Treatment Upcoming Encounters Date Type Department Care Team (Late st Contact Info) Description 06/21/2025 11:00 AM INVESTIGATION OFFICER [facility], [address] [place], [place] [phone] Jostin Thompson MD [facility] [address] [place], [place] [phone] 08/03/2025 3:20 PM CDT Office Visit [facility] - [place] [address] [address] [place] [address] Taryn Mcneal MD [address] [place] [address] documented as of this encounter Visit Diagnoses Not on filedocumented in this encounter Additional Health Concerns Assessment Noted Time PHQ-9 Depression Total Score: 1 08/16/19 24 7:46 AM CDT documented as of this encounter Care Teams Test Driller Relationship Specialty Start Date End Date Taryn Mcneal MD [address] [place] [address] PCP - General INTERNAL MEDICINE 07/06/22 documented as of this encounter
[2025-05-02] MEDS: cefTRIAXone 1 GM in SODIUM CHLORIDE 0.9% IV 50 ML 100 ML IVPB (11:00)
--- NOTE | 2025-05-02 13:00 | PC.NURSE ---
This RN attempted to d/c the pt. Pt requested that he be admitted instead of going home. MD notified and pt to be admitted.
[2025-05-02] MEDS: TAMSULOSIN HCL 0.4 MG CAPSULE PO (14:06)
[2025-05-02] MEDS: LACTATED RINGERS 1,000 ML 125 ML IV CONT (14:06)
[2025-05-02] MEDS: SODIUM CHLORIDE 0.9% IV 1,000 ML 75 ML IV CONT (14:06)
--- NOTE | 2025-05-02 14:53 | WPCEDHO ---
ED Hand Off Checklist All vitals saved:yes IV Site documented:yes All med administrations documented:yes Triage Note Triage Note Patient to the ED from home with 05/02/25 08:57 complaints of dizziness, SOB and chills that began this morning. Patient also complaints of nausea . Patient denies CP. Allergies No Known Allergies Allergy (Verified 05/02/25 08:54) Active Medications including assessments/comments Acetaminophen (Acetaminophen 650 Mg Suppository) 650 mg RECTAL Q6H PRN PRN Reason: Mild Pain (1-3) or Fever Last Admin: 05/02/25 10:24 Dose: 650 mg Documented By: [facility] MAR Pain Assessment Document 05/02/25 10:24 [facility] (Rec: 05/02/25 10:24 [facility] [id number]) Pain Evaluation Pain Evaluation Pre-Treatment Pain Scale Pain Scale Used Juan (FACES) Lawrence-Abi Bravo-Alex Pain Mild Pain Scale Pain Score Pain Score Mild Pain: Lawrence Alex Sodium Chloride (Normal Saline Iv) 1,000 mls @ 75 mls/hr IV CONT .[id number] STA Stop: 05/03/25 03:05 Last Admin: 05/02/25 14:06 Dose: 75 mls/hr Documented By: LUIS Infusion/Titration Document 05/02/25 14:06 LUIS (Rec: 05/02/25 14:06 LUIS [id number]) Intake IV Site Peripheral Access Left Antecubital Container Volume 1,000 Waste Amount 0 Dosing Infusion Rate 75 Cumulative Dose Not Applicable Increase/Decrease Started Elapsed Time Elapsed Time ( 0m minutes) Lactated Ringer's (Lr - Lactated Ringers Iv) 1,000 mls @ 125 mls/hr IV CONT .Q8H ROSA Last Admin: 05/02/25 14:06 Dose: 125 mls/hr Documented By: LUIS Infusion/Titration Document 05/02/25 14:06 [facility]IS (Rec: 05/02/25 14:06 LUIS [id number]) Intake IV Site Peripheral Access Left Antecubital Container Volume 1,000 Waste Amount 0 Dosing Infusion Rate 125 Cumulative Dose Not Applicable Increase/Decrease Started Elapsed Time Elapsed Time ( 0m minutes) Administered/Completed Medications Discontinued Medications Acetaminophen (Acetaminophen 500 Mg Tablet) 1,000 mg PO ONCE STA Stop: 05/02/25 09:02 Last Admin: 05/02/25 09:08 Dose: 1,000 mg Documented By: [facility] Lactated Ringer's (Lr - Lactated Ringers Iv) 1,000 mls @ 999 mls/hr IV CONT .Q1H1M STA Stop: 05/02/25 10:03 Last Infusion: 05/02/25 10:57 Dose: Infused Documented By: Admin: 05/02/25 09:08 Dose: 999 mls/hr Documented By: VIVIENNE Lactated Ringer's (Lr - Lactated Ringers Iv) 1,000 mls @ 999 mls/hr IV CONT .Q1H1M STA Stop: 05/02/25 10:03 Last Infusion: 05/02/25 10:57 Dose: Infused Documented By: [facility] Admin: 05/02/25 09:08 Dose: 999 mls/hr Documented By: VIVIENNE Ceftriaxone Sodium 1 gm/ (Sodium Chloride) 50 mls @ 100 mls/hr IVPB ONCE STA Stop: 05/02/25 10:42 Last Infusion: 05/02/25 11:30 Dose: Infused Documented By: Admin: 05/02/25 11:00 Dose: 100 mls/hr Documented By: [facility] Ondansetron HCl (Ondansetron Inj 4 Mg/2 Ml Vial) 4 mg IV PUSH ONCE STA Stop: 05/02/25 09:11 Last Admin: 05/02/25 09:13 Dose: 4 mg Documented By: [facility] Ondansetron HCl (Ondansetron Inj 4 Mg/2 Ml Vial) Confirm Administered Dose 4 mg .ROUTE .STK-MED ONE Stop: 05/02/25 09:12 Last Admin: 05/02/25 09:17 Dose: Not Given Documented By: [facility] Non-Admin Reason: Duplicate Dose Tamsulosin HCl (Tamsulosin Hcl 0.4 Mg Capsule) 0.4 mg PO ONCE ONE Stop: 05/02/25 12:27 Last Admin: 05/02/25 14:06 Dose: 0.4 mg Documented By: LUIS Interventions/Assessments IV / Saline Lock, Insert Start: 05/02/25 08:52 Freq: Status: Active Protocol: Document 05/02/25 09:08 [facility] (Rec: 05/02/25 09:08 [facility] [id number]) IV Assessment Peripheral Access Left Antecubital IV Catheter Access Initiated IV Insertion Date 05/02/25 IV Insertion Time 09:08 Catheter Gauge 18 IV Insertion 1 Attempts Ultrasound Used for No Placement IV Site Assessment WNL IV Care and WNL Maintenance PA: Cardiovascular Assessment Start: 05/02/25 08:52 Freq: Status: Active Protocol: Document 05/02/25 09:18 [facility] (Rec: 05/02/25 09:18 [facility] [id number]) Cardiovascular Assessment Cardiovascular None Symptoms Skin Description Normal Color Heart Sounds Normal Jugular Vein None Distention PA: Respiratory Assessment Start: 05/02/25 08:52 Freq: Status: Active Protocol: Document 05/02/25 09:18 [facility] (Rec: 05/02/25 09:18 [facility] [id number]) Respiratory Assessment Symptoms Shortness of Breath With Exertion Effort Normal Pattern Regular Depth Normal Bilateral Throughout Phase Inspiratory & Expiratory Lung Sounds Clear Cough Description None Oxygen Delivery Oxygen Delivery Room Air Pulse Oximetry (90- 97 100) Last Vital Signs Temperature 98.8 F 05/02/25 11:00 Pulse Rate 111 H 05/02/25 14:45 Respiratory Rate 27 H 05/02/25 14:45 Pulse Oximetry 96 05/02/25 14:45 Blood Pressure 120/74 05/02/25 14:45 Blood Pressure Mean 89 05/02/25 14:45 Oxygen Delivery Room Air 05/02/25 09:18 Weight 93 kg 05/02/25 08:57 Last Result - Abnormals Only WBC 3.3 K/mm3 (4.5-10.0) L 05/02/25 09:14 RDW 15.3 % (11.5-14.5) H 05/02/25 09:14 Neut % (Auto) 81.6 % (45.5-73.1) H 05/02/25 09:14 Lymph % (Auto) 16.3 % (18.3-44.2) L 05/02/25 09:14 [place] % (Auto) 0.3 % (2.6-8.5) L 05/02/25 09:14 Lymph # (Auto) 0.53 K/mm3 (0.9-3.2) L 05/02/25 09:14 [place] # (Auto) 0.0 K/mm3 (0.1-0.6) L 05/02/25 09:14 D-Dimer 0.93 ug/mL (<0.48) H 05/02/25 09:14 Creatinine 1.34 mg/dL (0.7-1.3) H 05/02/25 09:14 Estimated GFR 57 (59-) L 05/02/25 09:14 Lactic Acid 2.6 mmol/L (0.7-2.0) H 05/02/25 09:14 Urine Appearance Cloudy (Clear) H 05/02/25 09:50 Urine Ketones Trace mg/dL (Negative) H 05/02/25 09:50 Urine Nitrate Positive (Negative) H 05/02/25 09:50 Leukocyte Esterase Rfl 2+ CHARANJIT/UL (Negative) H 05/02/25 09:50 Urine WBC >100 /hpf (0-3) H 05/02/25 09:50 Urine Bacteria 4+ /hpf H 05/02/25 09:50 Most Recent Suicide Severity Rating Suicide Severity Rating NO RISK INDICATED 05/02/25 08:57
--- NOTE | 2025-05-02 15:05 | PM.IMHP2 ---
H&P: HPI History of Present Illness Date/Time: 05/02/25 15:05 Chief Complaint: Dizziness, Chills, Shortness of Breath Narrative: 44 y/o M with PMH of hypertension and previous urinary retention presents here with shortness of breath, dizziness and chills. The patient presents here from home on 05/02 for further evaluation of dizziness, shortness of breath, nausea, and chills. HPI obtained through patient report, chart review, and patient's . He reports onset of symptoms this morning. He denies accompanying cough, rhinorrhea, congestion, vomiting, abdominal pain, diarrhea, or constipation. Upon arrival to the emergency department patient was noted to have a heart rate in the 130s and was significantly febrile at 103.6? F. Found to have retained urine - 300 mL. He reports a previous history of urinary retention, last occurrence 3 years ago and the believes he had a UTI at that time. Prescribed short course of Flomax at that time and has had no issue since until today. The patient's reports that the shortness of breath occurred with the chills when he was febrile earlier. With reduction in the patient's fever and heart rate, the shortness of breath has resolved. Denies exertional shortness of breath, weight gain, lower extremity edema. Initial VS at presentation: 103.6? F, [place] 130, [place] [address]/96, and 99% on RA. ED workup showed: WBC 3.3, no anemia, D-dimer elevated with a negative CTA, no significant electrolyte derangements, creatinine 1.34 and GFR 57, initial lactic 2.6 with repeat post fluids 1.5, and UA consistent with UTI. Viral PCR negative. Trichomonas and chlamydia/gonorrhea negative. CXR showed a mildly prominent cardiac silhouette, pericardial effusion and/or cardiomegaly not excluded, lungs clear. Chest/abdomen/pelvis CTA showed no central or large PE, [id number] cardiomegaly, mildly enlarged central and main pulmonary arteries which could be associated with pulmonary arterial hypertension, no gross acute intrathoracic process, mildly distended urinary bladder with possible mild wall thickening, no acute surgical abnormality seen in the abdomen/pelvis. EKG showed sinus tachycardia, rate 127, left axis deviation, IVC delay, LVH, nonspecific T-wave abnormality high lateral leads. Review of Systems Review of Systems: All systems reviewed & are unremarkable except as noted in HPI and below PMFSH Past Medical History Medical History Prediabetes Myocardial infarction Mild, 2022 Biceps muscle tear HTN (hypertension) Enlarged prostate Social History Social History Social History: patient denies use of alcohol tobacco or drugs Smoking status: Never smoker Alcohol intake: never Substance use: never Lack of Transportation: No Lack of Food: Never True Current Housing: I Have Housing Concerned About Future Housing: No Difficulty Paying Gas/Electric Bills: No Difficulty Paying for Meds: No Currently Unemployed: No Education: Trade/Vocational Certificate Difficulty w/ Childcare or Family Care: No Spiritual care concerns: No Meds Home Medications and Allergies Home Medications ?Medication ?Instructions ?Recorded ?Confirmed ?Type atorvastatin 80 mg tablet 80 mg PO DAILY 05/02/25 05/02/25 History azelastine 137 mcg (0.1 %) nasal 1 spray intranasal Q12H PRN 05/02/25 05/02/25 History spray congestion cephalexin 500 mg capsule 500 mg PO Q8H 7 days #21 caps 05/02/25 Rx lisinopril 20 mg tablet 20 mg PO DAILY 05/02/25 05/02/25 History metformin 500 mg tablet 500 mg PO DAILY 05/02/25 05/02/25 History ondansetron 4 mg disintegrating 4 mg PO Q8H PRN nausea and 05/02/25 Rx tablet vomiting #14 tabs tamsulosin 0.4 mg capsule 0.4 mg PO DAILY 14 days #14 caps 05/02/25 Rx Allergies Allergy/AdvReac Type Severity Reaction Status Date / Time No Known Allergies Allergy Verified 05/02/25 15:43 Vital Signs Vital Signs - 24 hr 05/02/25 08:57 05/02/25 09:18 05/02/25 09:18 Temperature 103.6 F H Pulse Rate 130 H 119 H Respiratory Rate 19 19 Blood Pressure 164/96 H Pulse Oximetry 99 96 97 Oxygen Delivery Room Air Room Air 05/02/25 11:00 05/02/25 11:02 05/02/25 11:02 Temperature 98.8 F Pulse Rate 111 H Respiratory Rate 19 20 Blood Pressure 99/70 L 119/77 119/77 Pulse Oximetry 95 95 Oxygen Delivery 05/02/25 11:15 05/02/25 12:58 05/02/25 14:45 Temperature Pulse Rate 112 H 111 H Respiratory Rate 18 20 27 H Blood Pressure 107/75 123/74 120/74 Pulse Oximetry 96 96 96 Oxygen Delivery Exam Const: General: comfortable and no acute distress Other: , male, modestly ill-appearing HENMT: Face/Nose/Sinus: Normal nares present Mouth: Yes moist mucous membranes Eyes: General: appearance normal, both eyes and all related structures Sclera: sclerae normal Pupils: Equal, round and reactive pupils present EOM: EOMs intact bilaterally Resp: Effort & Inspection: normal respiratory effort Auscultation: clear to auscultation bilaterally Cardio: Rate: regular rate Rhythm: regular rhythm Other: S1-S2 present without murmur, rub, ectopy GI: Other: Abdomen soft, nondistended, nontender. Normoactive bowel sounds in all quadrants. Skin: General skin exam: normal color and no rashes or lesions noted Wounds: no wounds Neuro: Speech: normal speech Motor exam (neuro): 5/5 motor strength present throughout Sensory Exam: normal sensation Other: A&O x4, fatigued Extrem: General: normal to inspection Psych: Mental Status: mental status grossly normal Affect: normal affect Other: Good insight and judgment, pleasant Results Labs Labs: Short CBC 05/02/25 Range/Units 09:14 WBC 3.3 L (4.5-10.0) K/mm3 Hgb 14.2 (14.0-18.0) g/dL Hct 43.7 (42.0-52.0) % Plt Count 188 (150-375) k/mm3 [facility] 05/02/25 09:14 Sodium 143 Potassium 3.9 Chloride 105 Carbon Dioxide 28 BUN 16 Creatinine 1.34 H Glucose 99 Calcium 9.3 Liver Function 05/02/25 Range/Units 09:14 Total Bilirubin 0.8 (0.2-1.3) mg/dL AST 52 (17-59) U/L ALT 43 (6-50) U/L Alkaline Phosphatase 89 (38-126) U/L Albumin 4.5 (3.5-5.1) g/dL Urine 05/02/25 Range/Units 09:50 Urine Color Yellow (Yellow) Urine Appearance Cloudy H (Clear) Urine pH 7.0 (5.0-9.0) Ur Specific [place] 1.018 (1.001-1.035) Urine Protein Trace (Negative) mg/dL Urine Glucose (UA) Negative (Negative) mg/dL Quality VTE Prophylaxis VTE prophylaxis: mechanical ordered Assessment and Plan Assessment and plan (1) Sepsis: Qualifiers: Sepsis acute organ dysfunction status: without acute organ dysfunction Sepsis type: sepsis due to unspecified organism Qualified Code(s): A41.9 - Sepsis, unspecified organism Code(s): A41.9 - Sepsis, unspecified organism Status: Acute Assessment and Plan: Patient met sepsis criteria due to heart rate (130), temp (103.6? F) and WBC (3.3). Initial lactic elevated at 2.6. Repeat post fluids 1.5. CXR evaluated on 05/02, clear with no evidence of pneumonia. Viral PCR negative. UA concerning for UTI, suspect this is source. Did have SOB, however this resolved with reduction in his fever and heart rate. No current indication of infectious lung process. Suspect shortness of breath sequela of tachycardia/fever. - UA indicating UTI, started on broad-spectrum antibiotics - lactic initially elevated, but downtrending with IV fluids. Received 2 L bolus in the ED, fluids continued at 125 mL/hour. - given lactic was elevated, check procalcitonin - ED vital signs reviewed, heart rate down trending, no longer febrile. Does have modest tachypnea with no associated hypoxia. Continue to monitor hemodynamic stability. -noted to have a mild knee reduction in renal function with a creatinine of 1.34 and GFR 57, likely related to UTI. Monitor. IV fluids. (2) Acute UTI: Code(s): N39.0 - Urinary tract infection, site not specified Status: Acute Assessment and Plan: - UA: Cloudy, trace ketones, positive nitrates, 2+ leuk esterase, greater than 100 WBC, 4+ bacteria. - Trichomonas, chlamydia, gonorrhea negative on 05/02 - UC pending - previous micro reviewed - started on Ceftriaxone on 05/02, continued inpatient (3) Urinary retention: Code(s): R33.9 - Retention of urine, unspecified Status: Acute Assessment and Plan: Noted to have urinary retention in the ED. 300 mL retained. Patient declined [facility]. - started on Flomax on 05/02, continued inpatient - bladder scan p.r.n. and postvoid residual this evening - will need Urology follow-up outpatient (4) Enlarged pulmonary artery: Code(s): I28.8 - Other diseases of pulmonary vessels Status: Acute Assessment and Plan: CTA chest/abd/pelvis done on 05/02 during initial evaluation showed mild to moderate cardiomegaly. Mildly enlarged central and main pulmonary arteries which could be associated pulmonary arterial hypertension. No gross acute intrathoracic process. Denies history of COPD, asthma, smoking, or environmentally exposures that could have affected his lungs. Only cardiac history is a mild heart attack that occurred in 2022 and hypertension. - obtain echo to better evaluate (5) Prediabetes: Code(s): R73.03 - Prediabetes Status: Chronic Assessment and Plan: Patient has past medical history of prediabetes on metformin. Does not check glucoses at home. Initial glucose 99. - Accu-Cheks p.r.n. - hypoglycemia protocol p.r.n. Plan Diet: Heart healthy GI Prophylaxis: N/a DVT Prophylaxis: SCDs IV fluids: 2L bolus -> 125 mL/hr Lines/Tubes: pIV Code Status: full code Prior Studies I have reviewed the following patient records and this information was taken into consideration when formulating the assessment and plan.: previous labs, previous ER visits, previous hospitalizations and previous clinic visits Time Spent with Patient Time with patient: less than 45 minutes Hospitalist MIPS Advance Care Plan I have confirmed that the patient's Advanced Care Plan is present, code status is documented, or surrogate decision maker is listed in patient medical record.: Yes Medication Reconciliation I have utilized all available resources to obtain, update and review the patients current medications (includes all prescriptions, OTC, herbals, cannabis, and nutritional supplements).: Yes
--- NOTE | 2025-05-02 15:15 | PC.NURSE ---
This patient, Sameer Hardin, was admitted to [facility] Room 321-01 at 1515. Patient/family oriented to hospital policies and general routines including ID bracelet, bed and alarms, visiting hours, pain management, procedures, bathroom and other care routines, personal items, smoking policy, room service/diet, and visiting hours. Information on how to activate the Rapid Response Team has been discussed. Patient/Family are encouraged to report perceived risks to care and to ask questions if they do not understand what they are told or what they should do.
[2025-05-02 18:20] LABS: Procalcitonin 58.4 ng/mL
[2025-05-02] MEDS: ACETAMINOPHEN 325 MG TABLET 650 MG PO (20:32)
[2025-05-03] VITALS (15 sets, daily range): BP systolic 132–161; BP diastolic 66–95; PULSE 91–132; RESP 16–24; TEMP 36.7–37.7; O2SAT 94–99
--- NOTE | 2025-05-03 | ECHO_ITS ---
Patient Info Name: Sameer Hardin Age: 44 years : 1980 Gender: Male Ht: 70 in Wt: 213 lbs BSA: 2.21 m2 HR: 119 bpm BP: 158 / 95 mmHg Technical Quality: Good Exam Date: 05/03/2025 4:07 PM Patient Status: unknown Admit Date: 05/03/2025 Exam Type: CA echo doppler color flow Complete two-dimensional, color flow and Doppler transthoracic echocardiogram is performed. Staff Referring Physician: Aubree Pierce COMBAT SYSTEMS ENGINEER Continuous Linter Drier Operator: Rod Izquierdo III Attending Provider: Lewis Price Summary 1. Complete two-dimensional, color flow and Doppler transthoracic echocardiogram is performed. 2. Left ventricular systolic function is lower end of normal, estimated at 50. 3. There is mildly increased left ventricular wall thickness. 4. The left ventricular diastolic function is grade I diastolic dysfunction. 5. There is mild mitral valve regurgitation. 6. There is no tricuspid valve regurgitation. Left Ventricle Left ventricular chamber dimension is normal. Left ventricular systolic function is lower end of normal, estimated at 50. There is mildly increased left ventricular wall thickness. Left ventricular septal wall motion is normal. The left ventricular diastolic function is grade I diastolic dysfunction. Right Ventricle Right ventricular chamber dimension is normal. Right ventricular systolic function is normal. Left Atria Left atrial chamber dimension is normal. Right Atria Right atrial chamber dimension is normal. Aortic Valve The aortic valve is trileaflet. There is mild aortic valve sclerosis. There is no aortic valve stenosis. There is no aortic valve regurgitation. Pulmonic Valve The pulmonic valve is normal. There is no pulmonic valve stenosis. There is no pulmonic regurgitation. Mitral Valve The mitral valve has normal leaflets. There is no mitral valve stenosis. There is mild mitral valve regurgitation. Tricuspid Valve The tricuspid valve leaflets are normal. There is no significant tricuspid valve stenosis. There is no tricuspid valve regurgitation. Pericardium/Pleural The pericardium appears normal. There is no pericardial effusion. Inferior Vena Cava Normal inferior vena cava with >50% collapse upon inspiration consistent with normal right atrial pressure, 5 mmHg. Aorta The aortic root size at the sinus of Valsalva is normal. The prox ascending aorta size is normal. Left Ventricular Outflow Tract Name Value Normal LVOT 2D LVOT Diameter 2.3 cm LVOT Doppler LVOT Peak Velocity 90 cm/s LVOT Peak Gradient 3 mmHg LVOT Mean Gradient 2 mmHg LVOT VTI 16 cm LVOT VTI/AV VTI Ratio 0.7 LVOT Stroke Volume 62 ml LVOT CO 5.7 l/min LVOT CI 2.6 l/min/m2 Pulmonic Valve Name Value Normal PV Doppler PV Peak Velocity 97 cm/s PV Peak Gradient 4 mmHg PV Mean Gradient 2 mmHg Mitral Valve Name Value Normal MV Doppler MV Peak Gradient 2 mmHg MV Mean Gradient 2 mmHg MV Area (Cont Eq VTI) 3.4 cm2 MV Regurgitation Doppler MR Peak Gradient 79 mmHg MV Diastolic Function MV E Peak Velocity 102 cm/s MV A Peak Velocity 75 cm/s MV E/A 1.4 MV Decel Time (PW) 134 ms MV Annular TDI MV E/e' (Septal) 15.3 MV E/e' (Lateral) 8.6 MV E/e' (Average) 12.0 Tricuspid Valve Name Value Normal Estimated PAP/RSVP RA Pressure 5 mmHg <=5 TV Annular TDI TV Lateral Martine s' Velocity 15.7 cm/s >=9.5 Aortic Valve Name Value Normal AV Doppler AV Peak Velocity 144 cm/s AV Peak Gradient 8 mmHg AV Mean Gradient 5 mmHg AV VTI 23 cm AV Area (Cont Eq VTI) 2.7 cm2 >=3.0 AV Area (Cont Eq Jesse) 2.5 cm2 AV DI (Jesse) 0.62 AV Regurgitation 2D LVOT Area 4.0 cm2 Ventricles Name Value Normal LV Dimensions 2D/MM IVS Diastolic Thickness (2D) 1.0 cm 0.6-1.0 LVID Diastole (2D) 5.6 cm 4.2-5.8 LVIW Diastolic Thickness (2D) 1.2 cm 0.6-1.0 LVID Systole (2D) 4.3 cm 2.5-4.0 LVOT Diameter 2.3 cm LV Mass (2D Cubed) 247.49 g 88.00-224.00 LV Mass Index (2D Cubed) 112 g/m2 49-115 Relative Wall Thickness (2D) 0.45 <=0.42 LV Fractional Shortening/Ejection Fraction 2D/MM LV Fractional Shortening (2D) 23 % 25-43 LV EF (2D Teichholz) 45 % LV Diastolic Volume (4C MOD) 138 ml LV EF (4C MOD) 51 % LV Diastolic Volume (2C MOD) 154 ml LV EF (2C MOD) 45 % LV Diastolic Volume (BP MOD) 147 ml 62-150 LV Diastolic Volume Index (BP MOD) 67 ml/m2 34-74 LV Systolic Volume (BP MOD) 76 ml 21-61 LV Systolic Volume Index (BP MOD) 34 ml/m2 11-31 LV EF (BP MOD) 49 % 52-72 LV Diastolic Length (4C) 9.0 cm LV Systolic Length (4C) 8.1 cm LV Stroke Volume (4C MOD) 70 ml Atria Name Value Normal LA Dimensions LA Volume (4C A-L) 62 ml LA Volume (BP A-L) 65 ml RA Dimensions RA Systolic Major Anderson Length (4C) 5.5 cm 2.1-2.7 RA Area (4C) 17.1 cm2 <=18.0 Report Signatures
[2025-05-03] MEDS: ACETAMINOPHEN 325 MG TABLET 650 MG PO ×4 (01:49→21:45)
--- NOTE | 2025-05-03 02:59 | ECG_ITS ---
Test Date: 2025-05-03 03:29:47 Measurements Intervals [place] Rate: 119 P: 0 OK: 0 QRS: -39 QRSD: 117 T: 79 QT: 329 QTc: 464 Interpretive Statements SINUS TACHYCARDIA LEFT AXIS DEVIATION INTRAVENTRICULAR CONDUCTION DELAY DELAYED PRECORDIAL R/S TRANSITION LEFT VENTRICULAR HYPERTROPHY MINIMAL Q WAVES- HIGH LATERAL LEADS BORDERLINE T WAVE ABNORMALITY- HIGH LATERAL LEADS BASELINE WANDER- V4-V6 ABNORMAL ECG Compared to ECG 05/02/2025 09:06:21 NO SIGNIFICANT CHANGE Electronically Signed On 05-03-2025 06:13:07 MARKETING LIAISON by Sanchez Tatum D.O.
[2025-05-03 03:11] LABS: Alveolar/Arterial O2 Gradient 87.7 mmHg; Fractional Inspired Oxygen 28 %; HCO3 ABG 22.8 mEq/l (22.0-26.0); Oxygen Content ABG 16.8 %vol (16.0-22.0); Oxygen Saturation ABG 96.4 % (95.0-100.0); PCO2 ABG 30.1 mmHg (35.0-45.0); PO2 ABG 76.4 mmHg (80.0-100.0); PO2 FiO2 Ratio Arterial Blood 2.73 %
[2025-05-03 03:12] LABS: Liters per Minute 2.0 LPM; Modified Allen's Test Pass; Site Drawn RIGHT RADIAL
[2025-05-03] MEDS: IPRATROPIUM 0.5 MG/ALBUTEROL SULFATE 2.5 MG (BASE) AMPUL.NEB 3 ML INHALATION ×2 (03:16→20:02)
[2025-05-03] MEDS: SODIUM CHLORIDE 0.9% IV 1,000 ML 75 ML IV CONT ×3 (04:47→19:58)
[2025-05-03 06:49] LABS: Hematocrit 36.6 % (42.0-52.0); Hemoglobin 12.0 g/dL (14.0-18.0); Mean Corpuscular HGB Conc 32.8 g/dl (32-36); Mean Corpuscular Hemoglobin 27.8 pg (26-34); Mean Corpuscular Volume 84.7 fl (80-100); Platelet Count Result 152 k/mm3 (150-375); Red Blood Count 4.32 M/mm3 (4.6-6.20); White Blood Count 9.2 K/mm3 (4.5-10.0)
[2025-05-03 07:10] LABS: Anion Gap 6 mmol/L (4-12); Blood Urea Nitrogen 15 mg/dL (9-20); Calcium 8.7 mg/dL (8.4-10.2); Carbon Dioxide 26 mmol/L (22-30); Chloride 103 mmol/L (98-107); Estimated CRCL calculation 72 ml/min; Estimated Glomerular Filt Rate 57; Glucose 102 mg/dL (65-110); Potassium 3.7 mmol/L (3.4-5.0); Sodium 135 mmol/L (137-145)
[2025-05-03 08:05] LABS: Anisocytosis Occasional; Band Neutrophils Percent 7 % (0-6); Basophils Absolute Manual 0.09 K/mm3 (0.0-0.1); Basophils Percent Manual 1 % (0-1); Lymphocytes Absolute Manual 0.55 K/mm3 (1.1-4.5); Lymphocytes Percent Manual 6 % (18-44); Monocytes Absolute Manual 0.18 K/mm3 (0.1-0.90); Monocytes Percent Manual 2 % (3-9); Neutrophils Absolute Manual 8.37 K/mm3 (1.3-6.7); Neutrophils Percent Manual 84 % (46-73); Schistocytes None Seen; Total Cells Counted 100
[2025-05-03 08:06] LABS: Ovalocytes Occasional
--- NOTE | 2025-05-03 08:12 | PM.IMPN2 ---
Assessment and Plan Assessment and Plan (1) Sepsis: Qualifiers: Sepsis acute organ dysfunction status: without acute organ dysfunction Sepsis type: sepsis due to unspecified organism Qualified Code(s): A41.9 - Sepsis, unspecified organism Code(s): A41.9 - Sepsis, unspecified organism Status: Acute Assessment and Plan: Patient met sepsis criteria due to heart rate (130), temp (103.6? F) and WBC (3.3) Initial lactic elevated at 2.6. Repeat post fluids 1.5 CXR evaluated on 05/02, clear with no evidence of pneumonia Viral PCR negative UA concerning for UTI, suspect this is source Did have SOB, however this resolved with reduction in his fever and heart rate. No current indication of infectious lung process. Suspect shortness of breath sequela of tachycardia/fever. procalcitonin 58.4, repeat in the a.m. ED vital signs reviewed, heart rate down trending, no longer febrile. Does have modest tachypnea with no associated hypoxia. Continue to monitor hemodynamic stability. Noted to have a mild reduction in renal function with a creatinine of 1.34 and GFR 57, likely related to UTI. Monitor. IV fluids. Monitor CBC, CMP, vital signs Remains afebrile without leukocytosis (2) Acute UTI: Code(s): N39.0 - Urinary tract infection, site not specified Status: Acute Assessment and Plan: UA: Cloudy, trace ketones, positive nitrates, 2+ leuk esterase, greater than 100 WBC, 4+ bacteria. Trichomonas, chlamydia, gonorrhea negative on 05/02 UC pending previous micro reviewed started on Ceftriaxone on 05/02, continued inpatient (3) Urinary retention: Code(s): R33.9 - Retention of urine, unspecified Status: Acute Assessment and Plan: Noted to have urinary retention in the ED. 300 mL retained. Patient declined Hughes. Started on Flomax on 05/02, continued inpatient Bladder scan p.r.n. and postvoid residual this evening Will need Urology follow-up outpatient (4) Enlarged pulmonary artery: Code(s): I28.8 - Other diseases of pulmonary vessels Status: Acute Assessment and Plan: CTA chest/abd/pelvis done on 05/02 during initial evaluation showed mild to moderate cardiomegaly Mildly enlarged central and main pulmonary arteries which could be associated pulmonary arterial hypertension. No gross acute intrathoracic process. Denies history of COPD, asthma, smoking, or environmentally exposures that could have affected his lungs. Only cardiac history is a mild heart attack that occurred in 2022 and hypertension. Echocardiogram pending (5) Prediabetes: Code(s): R73.03 - Prediabetes Status: Chronic Assessment and Plan: Patient has past medical history of prediabetes on metformin. Does not check glucoses at home. Initial glucose 99. - Accu-Cheks p.r.n. - hypoglycemia protocol p.r.n. Plan Diet: Heart healthy GI Prophylaxis: N/a DVT Prophylaxis: SCDs IV fluids: 2L bolus -> 125 mL/hr Lines/Tubes: pIV Code Status: full code Subjective Date/time seen: 05/03/25 08:12 Interval history: 44 y/o M with PMH of hypertension and previous urinary retention presents here with shortness of breath, dizziness and chills. 05/03/2025 Patient sitting comfortably in bed at time of examination. Denies any chest pain, shortness of breath, nausea/vomiting or abdominal pain at this time. Urine/blood culture still pending. Still slightly tachycardic. Creatinine still slightly elevated, 1.34. Continued to give IV fluids and monitor CBC. Review of Systems Review of Systems: All systems reviewed & are unremarkable except as noted in HPI and below Exam Const: General: comfortable and no acute distress Other: , male, modestly ill-appearing HENMT: Face/Nose/Sinus: Normal nares present Mouth: Yes moist mucous membranes Eyes: General: appearance normal, both eyes and all related structures Sclera: sclerae normal Pupils: Equal, round and reactive pupils present EOM: EOMs intact bilaterally Resp: Effort & Inspection: normal respiratory effort Auscultation: clear to auscultation bilaterally Cardio: Rate: regular rate Rhythm: regular rhythm Other: S1-S2 present without murmur, rub, ectopy GI: Other: Abdomen soft, nondistended, nontender. Normoactive bowel sounds in all quadrants. Skin: General skin exam: normal color and no rashes or lesions noted Wounds: no wounds Neuro: Cranial nerves: Yes Equal, round and reactive pupils present Speech: normal speech Motor exam (neuro): 5/5 motor strength present throughout Sensory Exam: normal sensation Other: A&O x4, fatigued Extrem: General: normal to inspection Psych: Mental Status: mental status grossly normal Affect: normal affect Other: Good insight and judgment, pleasant Objective Data Vital Signs Vital Signs: Vital Signs - 24 hr 05/02/25 08:57 05/02/25 09:18 05/02/25 09:18 Temperature 103.6 F H Pulse Rate 130 H 119 H Respiratory Rate 19 19 Blood Pressure 164/96 H Pulse Oximetry 99 96 97 Oxygen Delivery Room Air Room Air Oxygen Flow Rate 05/02/25 11:00 05/02/25 11:02 05/02/25 11:02 Temperature 98.8 F Pulse Rate 111 H Respiratory Rate 19 20 Blood Pressure 99/70 L 119/77 119/77 Pulse Oximetry 95 95 Oxygen Delivery Oxygen Flow Rate 05/02/25 11:15 05/02/25 12:58 05/02/25 14:45 Temperature Pulse Rate 112 H 111 H Respiratory Rate 18 20 27 H Blood Pressure 107/75 123/74 120/74 Pulse Oximetry 96 96 96 Oxygen Delivery Oxygen Flow Rate 05/02/25 20:32 05/02/25 22:00 05/03/25 01:49 Temperature 100.8 F H 100.8 F H 98.5 F Pulse Rate 110 H Respiratory Rate 30 H Blood Pressure 97/67 L Pulse Oximetry 93 Oxygen Delivery Oxygen Flow Rate 05/03/25 03:00 05/03/25 03:17 05/03/25 03:37 Temperature 99.9 F H Pulse Rate 132 H 115 H 119 H Respiratory Rate 20 24 H 24 H Blood Pressure 158/95 H Pulse Oximetry 99 Oxygen Delivery Nasal Cannula Oxygen Flow Rate 2 05/03/25 06:00 Temperature 98.9 F Pulse Rate 112 H Respiratory Rate 20 Blood Pressure 132/66 Pulse Oximetry 95 Oxygen Delivery Oxygen Flow Rate Intake/Output Intake/Output: Intake & Output 04/30/25 05/01/25 05/02/25 05/03/25 23:59 23:59 23:59 23:59 Intake Total 2290 570 Output Total 450 100 Balance 1840 470 Meds/Results Medications: Active Medications Generic Name Dose Route Start Last Admin Trade Name Freq PRN Reason Stop Dose Admin Acetaminophen 650 mg 05/02/25 09:29 05/02/25 10:24 Acetaminophen 650 Mg Suppository RECTAL 650 mg Q6H PRN Administration Mild Pain (1-3) or Fever Acetaminophen 650 mg 05/02/25 13:54 05/03/25 05:43 Acetaminophen 325 Mg Tablet PO 650 mg Q4H PRN Administration Mild Pain (1-3) or Fever Albuterol/Ipratropium 3 ml 05/03/25 02:51 Ipratropium 0.5 Mg/Albuterol Sulfate 2.5 Mg (Base) Ampul.Neb 3 Ml INHALATION Q6HRT PRN Shortness Of Breath Or Wheezing Atorvastatin Calcium 80 mg 05/03/25 09:00 Atorvastatin 40 Mg Tablet PO DAILY ROSA Azelastine HCl 1 spray 05/02/25 18:52 Azelastine Hcl Nasal 0.1% 137 Mcg/Spr 30 Ml Btl NASAL Q12H PRN Congestion Dextrose 12.5 gm 05/02/25 18:54 Dextrose 50% 25 Gm/50 Ml Syringe IV PUSH PRN PRN Hypoglycemia Protocol Glucagon 1 mg 05/02/25 18:54 Glucagon For Inj 1 Mg Vial IM PRN PRN Hypoglycemia Protocol Glucose 15 gm 05/02/25 18:54 Glucose Oral Gel 15 Gm Of Glucse In 37.5 Gm Tube PO PRN PRN Hypoglycemia Protocol Ceftriaxone Sodium 1 gm/ 50 mls @ 100 mls/hr 05/03/25 11:00 Sodium Chloride IVPB Q24H ROSA Dextrose 1,000 mls @ 100 mls/hr 05/02/25 18:54 Dextrose 5% 1,000 Ml IVPB PRN PRN Hypoglycemia Protocol Sodium Chloride 1,000 mls @ 75 mls/hr 05/03/25 03:15 05/03/25 05:43 Normal Saline Iv IV CONT 75 mls/hr .[id number] [facility] Administration Lisinopril 20 mg 05/03/25 09:00 Lisinopril 20 Mg Tablet PO DAILY [facility] Metformin HCl 500 mg 05/03/25 09:00 Metformin Hcl 500 Mg Tablet PO DAILY [facility] Ondansetron HCl 4 mg 05/02/25 13:54 Ondansetron Inj 4 Mg/2 Ml Vial IV PUSH Q4H PRN Nausea Perflutren Lipid Microsphere 0 ml 05/02/25 18:53 Perflutren Lipid Microspheres 1.5 Ml Vial Diluted To 10 Ml Total Volume IV PUSH 05/05/25 18:53 ONCE PRN adequate visualization Protocol Tamsulosin HCl 0.4 mg 05/03/25 09:00 Tamsulosin Hcl 0.4 Mg Capsule PO QAM [facility] Radiology Results: ITS Impressions Chest/Abdomen/Pelvis CTA 05/02/25 10:45 IMPRESSION: 1. No central or large pulmonary emboli. 2. Mild to moderate cardiomegaly. Mildly enlarged central and main pulmonary arteries which could be associated pulmonary arterial hypertension. No gross acute intrathoracic process. 3. Mildly distended urinary bladder with possible mild wall thickening. Correlate with urinalysis. 4. No acute surgical abnormality seen in the abdomen or pelvis. Chest X-Ray 05/03/25 06:06 IMPRESSION: 1. No acute cardiopulmonary findings given portable technique. Labs Labs: Laboratory Results - last 24 hr 05/02/25 05/02/25 05/02/25 09:14 09:50 11:57 WBC 3.3 L RBC 5.15 Hgb 14.2 Hct 43.7 MCV 84.9 MCH 27.6 MCHC 32.5 RDW 15.3 H Plt Count 188 MPV 9.6 Immature Gran % (Auto) 0.3 Neut % (Auto) 81.6 H Lymph % (Auto) 16.3 L [place] % (Auto) 0.3 L Eos % (Auto) 1.2 Baso % (Auto) 0.3 Lymph # (Auto) 0.53 L [place] # (Auto) 0.0 L Eos # (Auto) 0.0 Baso # (Auto) 0.0 Abs Immat Gran (auto) 0.01 Absolute Neuts (auto) 2.7 Absolute Nucleated RBC 0.000 Total Counted Neutrophils % (Manual) Band Neutrophils % Lymphocytes % (Manual) Monocytes % (Manual) Basophils % (Manual) Nucleated RBC % 0.0 Abs Neuts (Manual) Abs Lymphs (Manual) Abs Monocytes (Manual) Abs Basophils (Manual) Platelet Estimate Anisocytosis Ovalocytes Schistocytes PT 13.6 INR 1.0 APTT 24.2 D-Dimer 0.93 H Puncture Site ABG pH ABG pCO2 ABG pO2 ABG PO2/FiO2 Ratio ABG HCO3 ABG O2 Saturation ABG O2 Content ABG Base Excess A-a Gradient Oxyhemoglobin Total Hemoglobin O2 Delivery Device O2 Liters/Min FiO2 Sodium 143 Potassium 3.9 Chloride 105 Carbon Dioxide 28 Anion Gap 10 BUN 16 Creatinine 1.34 H Estim Creat Clear Calc 70 Estimated GFR 57 L Glucose 99 POC Capillary Glucose Lactic Acid 2.6 H 1.5 Calcium 9.3 Magnesium 1.8 Total Bilirubin 0.8 AST 52 ALT 43 Alkaline Phosphatase 89 Total Protein 7.9 Albumin 4.5 Procalcitonin TSH (Reflex) 0.887 Urine Color Yellow Urine Appearance Cloudy H Urine pH 7.0 Ur Specific [place] 1.018 Urine Protein Trace Urine Glucose (UA) Negative Urine Ketones Trace H Ur Blood (Man) Non-hemolyzed trace Urine Nitrate Positive H Urine Bilirubin Negative Urine Urobilinogen 1.0 Leukocyte Esterase Rfl 2+ H Urine RBC 0-2 Urine WBC >100 H Ur Squamous Epith Cells None seen Urine Bacteria 4+ H Urine Casts 0-2 C. trachomatis (PCR) Not detected Influenza A (RT-PCR) Negative Influenza B (RT-PCR) Negative N. gonorrhoeae (PCR) Not detected RSV (RT-PCR) Negative SARS-CoV-2 RNA (RT-PCR) Negative 05/02/25 05/02/25 05/03/25 17:33 20:25 03:01 WBC RBC Hgb Hct MCV MCH MCHC RDW Plt Count MPV Immature Gran % (Auto) Neut % (Auto) Lymph % (Auto) [place] % (Auto) Eos % (Auto) Baso % (Auto) Lymph # (Auto) [place] # (Auto) Eos # (Auto) Baso # (Auto) Abs Immat Gran (auto) Absolute Neuts (auto) Absolute Nucleated RBC Total Counted Neutrophils % (Manual) Band Neutrophils % Lymphocytes % (Manual) Monocytes % (Manual) Basophils % (Manual) Nucleated RBC % Abs Neuts (Manual) Abs Lymphs (Manual) Abs Monocytes (Manual) Abs Basophils (Manual) Platelet Estimate Anisocytosis Ovalocytes Schistocytes PT INR APTT D-Dimer Puncture Site Right radial ABG pH 7.497 H ABG pCO2 30.1 L ABG pO2 76.4 L ABG PO2/FiO2 Ratio 2.73 ABG HCO3 22.8 ABG O2 Saturation 96.4 ABG O2 Content 16.8 ABG Base Excess 0.4 A-a Gradient 87.7 Oxyhemoglobin 94.3 Total Hemoglobin 12.6 O2 Delivery Device Nasal cannula O2 Liters/Min 2.0 FiO2 28 Sodium Potassium Chloride Carbon Dioxide Anion Gap BUN Creatinine Estim Creat Clear Calc Estimated GFR Glucose POC Capillary Glucose 148 H Lactic Acid Calcium Magnesium Total Bilirubin AST ALT Alkaline Phosphatase Total Protein Albumin Procalcitonin 58.4 TSH (Reflex) Urine Color Urine Appearance Urine pH Ur Specific [place] Urine Protein Urine Glucose (UA) Urine Ketones Ur Blood (Man) Urine Nitrate Urine Bilirubin Urine Urobilinogen Leukocyte Esterase Rfl Urine RBC Urine WBC Ur Squamous Epith Cells Urine Bacteria Urine Casts C. trachomatis (PCR) Influenza A (RT-PCR) Influenza B (RT-PCR) N. gonorrhoeae (PCR) RSV (RT-PCR) SARS-CoV-2 RNA (RT-PCR) 05/03/25 06:41 WBC 9.2 RBC 4.32 L Hgb 12.0 L Hct 36.6 L MCV 84.7 MCH 27.8 MCHC 32.8 RDW 15.7 H Plt Count 152 MPV 9.2 Immature Gran % (Auto) Not Reportable Neut % (Auto) Not Reportable Lymph % (Auto) Not Reportable [place] % (Auto) Not Reportable Eos % (Auto) Not Reportable Baso % (Auto) Not Reportable Lymph # (Auto) Not Reportable [place] # (Auto) Not Reportable Eos # (Auto) Not Reportable Baso # (Auto) Not Reportable Abs Immat Gran (auto) Not Reportable Absolute Neuts (auto) Not Reportable Absolute Nucleated RBC Not Reportable Total Counted 100 Neutrophils % (Manual) 84 H Band Neutrophils % 7 H Lymphocytes % (Manual) 6 L Monocytes % (Manual) 2 L Basophils % (Manual) 1 Nucleated RBC % Not Reportable Abs Neuts (Manual) 8.37 H Abs Lymphs (Manual) 0.55 L Abs Monocytes (Manual) 0.18 Abs Basophils (Manual) 0.09 Platelet Estimate Adequate Anisocytosis Occasional Ovalocytes Occasional Schistocytes None seen PT INR APTT D-Dimer Puncture Site ABG pH ABG pCO2 ABG pO2 ABG PO2/FiO2 Ratio ABG HCO3 ABG O2 Saturation ABG O2 Content ABG Base Excess A-a Gradient Oxyhemoglobin Total Hemoglobin O2 Delivery Device O2 Liters/Min FiO2 Sodium 135 L Potassium 3.7 Chloride 103 Carbon Dioxide 26 Anion Gap 6 BUN 15 Creatinine 1.34 H Estim Creat Clear Calc 72 Estimated GFR 57 L Glucose 102 POC Capillary Glucose Lactic Acid Calcium 8.7 Magnesium Total Bilirubin AST ALT Alkaline Phosphatase Total Protein Albumin Procalcitonin TSH (Reflex) Urine Color Urine Appearance Urine pH Ur Specific [place] Urine Protein Urine Glucose (UA) Urine Ketones Ur Blood (Man) Urine Nitrate Urine Bilirubin Urine Urobilinogen Leukocyte Esterase Rfl Urine RBC Urine WBC Ur Squamous Epith Cells Urine Bacteria Urine Casts C. trachomatis (PCR) Influenza A (RT-PCR) Influenza B (RT-PCR) N. gonorrhoeae (PCR) RSV (RT-PCR) SARS-CoV-2 RNA (RT-PCR) Quality VTE Prophylaxis VTE prophylaxis: mechanical ordered
[2025-05-03] MEDS: ATORVASTATIN 40 MG TABLET 80 MG PO (08:30)
[2025-05-03] MEDS: TAMSULOSIN HCL 0.4 MG CAPSULE PO (08:30)
[2025-05-03] MEDS: cefTRIAXone 1 GM in SODIUM CHLORIDE 0.9% IV 50 ML 100 ML IVPB (10:52)
[2025-05-04] VITALS: PULSE 87
[2025-05-04 04:00] VITALS: PULSE 83
[2025-05-04 05:54] VITALS: BP 153/111; PULSE 68; RESP 17; TEMP 37; O2SAT 96
[2025-05-04 05:59] VITALS: BP 160/90
--- NOTE | 2025-05-04 06:04 | PC.NURSE ---
Patient alert and oriented on RA. Vitals were taken and his BP was 160/90 mmhg.Kari Mak was notified and recommended to put an order for Inj Hydralazine 10mg PRN every 6 hrs.Order placed.Will continue to monitor and endorse it accordingly to the day shift.
[2025-05-04] MEDS: ACETAMINOPHEN 325 MG TABLET 650 MG PO (06:50)
--- NOTE | 2025-05-04 08:23 | P.PNIM_ITS ---
Assessment and Plan Assessment and Plan (1) Sepsis: Qualifiers: Sepsis type: sepsis due to unspecified organism Sepsis acute organ dysfunction status: without acute organ dysfunction Qualified Code(s): A41.9 - Sepsis, unspecified organism Code(s): A41.9 - Sepsis, unspecified organism Status: Acute Assessment and Plan: * Patient met sepsis criteria due to heart rate (130), temp (103.6? F) and WBC (3.3) * Initial lactic elevated at 2.6. Repeat post fluids 1.5 * CXR evaluated on 05/02, clear with no evidence of pneumonia * Viral PCR negative * UA concerning for UTI, suspect this is source * Did have SOB, however this resolved with reduction in his fever and heart rate . No current indication of infectious lung process. Suspect shortness of breath sequela of tachycardia/fever. * procalcitonin 58.4, repeat in the a.m. * ED vital signs reviewed, heart rate down trending, no longer febrile. Does have modest tachypnea with no associated hypoxia. Continue to monitor hemodynamic stability. * Noted to have a mild reduction in renal function with a creatinine of 1.34 and GFR 57, likely related to UTI. Monitor. IV fluids. * Monitor CBC, CMP, vital signs * Remains afebrile without leukocytosis (2) Acute UTI: Code(s): N39.0 - Urinary tract infection, site not specified Status: Acute Assessment and Plan: * UA: Cloudy, trace ketones, positive nitrates, 2+ leuk esterase, greater than 100 WBC, 4+ bacteria. * Trichomonas, chlamydia, gonorrhea negative on 05/02 * UC pending * previous micro reviewed * started on Ceftriaxone on 05/02, continued inpatient (3) Urinary retention: Code(s): R33.9 - Retention of urine, unspecified Status: Acute Assessment and Plan: Noted to have urinary retention in the ED. 300 mL retained. Patient declined Hughes. * Started on Flomax on 05/02, continued inpatient * Bladder scan p.r.n. and postvoid residual this evening * Will need Urology follow-up outpatient (4) Enlarged pulmonary artery: Code(s): I28.8 - Other diseases of pulmonary vessels Status: Acute Assessment and Plan: * CTA chest/abd/pelvis done on 05/02 during initial evaluation showed mild to moderate cardiomegaly * Mildly enlarged central and main pulmonary arteries which could be associated pulmonary arterial hypertension. No gross acute intrathoracic process. Denies history of COPD, asthma, smoking, or environmentally exposures that could have affected his lungs. Only cardiac history is a mild heart attack that occurred in 2022 and hypertension. * Echocardiogram pending (5) Prediabetes: Code(s): R73.03 - Prediabetes Status: Chronic Assessment and Plan: Patient has past medical history of prediabetes on metformin. Does not check glucoses at home. Initial glucose 99. - Accu-Cheks p.r.n. - hypoglycemia protocol p.r.n. Plan Diet: Heart healthy GI Prophylaxis: N/a DVT Prophylaxis: SCDs IV fluids: 2L bolus -> 125 mL/hr Lines/Tubes: pIV Code Status: full code Subjective Date/time seen: 05/04/25 08:23 Interval history: 44 y/o M with PMH of hypertension and previous urinary retention presents here with shortness of breath, dizziness and chills. 05/04/2025 Patient sitting comfortably in bed at time of examination. Denies any chest pain, shortness of breath, nausea/vomiting or abdominal pain at this time. Review of Systems Review of Systems: All systems reviewed & are unremarkable except as noted in HPI and below Exam Const: General: comfortable and no acute distress Other: , male, modestly ill-appearing HENMT: Face/Nose/Sinus: Normal nares present Mouth: Yes moist mucous membranes Eyes: General: appearance normal, both eyes and all related structures Sclera: sclerae normal Pupils: Equal, round and reactive pupils present EOM: EOMs intact bilaterally Resp: Effort & Inspection: normal respiratory effort Auscultation: clear to auscultation bilaterally Cardio: Rate: regular rate Rhythm: regular rhythm Other: S1-S2 present without murmur, rub, ectopy GI: Other: Abdomen soft, nondistended, nontender. Normoactive bowel sounds in all quadrants. Skin: General skin exam: normal color and no rashes or lesions noted Wounds: no wounds Neuro: Cranial nerves: Yes Equal, round and reactive pupils present Speech: normal speech Motor exam (neuro): 5/5 motor strength present throughout Sensory Exam: normal sensation Other: A&O x4, fatigued Extrem: General: normal to inspection Psych: Mental Status: mental status grossly normal Affect: normal affect Other: Good insight and judgment, pleasant Objective Data Vital Signs Vital Signs: Vital Signs - 24 hr 05/03/25 08:28 05/03/25 08:55 05/03/25 10:33 Temperature 98.9 F Pulse Rate 106 H Respiratory Rate Blood Pressure Pulse Oximetry 94 Oxygen Delivery Room Air 05/03/25 12:00 05/03/25 13:50 05/03/25 16:00 Temperature 98.1 F Pulse Rate 91 101 H 95 Respiratory Rate 18 Blood Pressure 134/84 Pulse Oximetry 98 Oxygen Delivery 05/03/25 20:00 05/03/25 20:02 05/03/25 20:02 Temperature Pulse Rate 92 95 Respiratory Rate 16 Blood Pressure Pulse Oximetry 95 Oxygen Delivery Room Air 05/03/25 20:07 05/03/25 20:17 05/03/25 20:45 Temperature 99.0 F Pulse Rate 99 99 Respiratory Rate 16 16 Blood Pressure 161/88 H Pulse Oximetry 97 Oxygen Delivery Room Air 05/04/25 00:00 05/04/25 04:00 05/04/25 05:54 Temperature 98.6 F Pulse Rate 87 83 68 Respiratory Rate 17 Blood Pressure 153/111 H Pulse Oximetry 96 Oxygen Delivery 05/04/25 05:59 05/04/25 08:00 Temperature Pulse Rate Respiratory Rate Blood Pressure 160/90 H Pulse Oximetry Oxygen Delivery Room Air Intake/Output Intake/Output: Intake & Output 05/01/25 05/02/25 05/03/25 05/04/25 23:59 23:59 23:59 23:59 Intake Total 2290 2420 240 Output Total 450 550 Balance 1840 1870 240 Meds/Results Medications: Active Medications Generic Name Dose Route Start Last Admin Trade Name Freq PRN Reason Stop Dose Admin Acetaminophen 650 mg 05/02/25 09:29 05/02/25 10:24 Acetaminophen 650 Mg Suppository RECTAL 650 mg Q6H PRN Administration Mild Pain (1-3) or Fever Acetaminophen 650 mg 05/02/25 13:54 05/04/25 06:50 Acetaminophen 325 Mg Tablet PO 650 mg Q4H PRN Administration Mild Pain (1-3) or Fever Albuterol/Ipratropium 3 ml 05/03/25 02:51 05/03/25 20:02 Ipratropium 0.5 Mg/Albuterol Sulfate 2.5 Mg (Base) Ampul.Neb 3 Ml INHALATION 3 ml Q6HRT PRN Administration Shortness Of Breath Or Wheezing Atorvastatin Calcium 80 mg 05/03/25 09:00 05/03/25 08:30 Atorvastatin 40 Mg Tablet PO 80 mg DAILY ROSA Administration Azelastine HCl 1 spray 05/02/25 18:52 Azelastine Hcl Nasal 0.1% 137 Mcg/Spr 30 Ml Btl NASAL Q12H PRN Congestion Dextrose 12.5 gm 05/02/25 18:54 Dextrose 50% 25 Gm/50 Ml Syringe IV PUSH PRN PRN Hypoglycemia Protocol Glucagon 1 mg 05/02/25 18:54 Glucagon For Inj 1 Mg Vial IM PRN PRN Hypoglycemia Protocol Glucose 15 gm 05/02/25 18:54 Glucose Oral Gel 15 Gm Of Glucse In 37.5 Gm Tube PO PRN PRN Hypoglycemia Protocol Hydralazine HCl 10 mg 05/04/25 06:01 05/04/25 06:09 Hydralazine Hcl 20 Mg/Ml Vial IV PUSH 10 mg Q6H PRN Administration Blood Pressure - High Ceftriaxone Sodium 1 gm/ 50 mls @ 100 mls/hr 05/03/25 11:00 05/03/25 10:52 Sodium Chloride IVPB 100 mls/hr Q24H [facility]A Administration Dextrose 1,000 mls @ 100 mls/hr 05/02/25 18:54 Dextrose 5% 1,000 Ml IVPB PRN PRN Hypoglycemia Protocol Sodium Chloride 1,000 mls @ 75 mls/hr 05/03/25 03:15 05/03/25 19:58 Normal Saline Iv IV CONT 75 mls/hr .[id number] [facility] Administration Lisinopril 20 mg 05/03/25 09:00 05/03/25 08:30 Lisinopril 20 Mg Tablet PO 20 mg DAILY [facility] Administration Metformin HCl 500 mg 05/03/25 09:00 05/03/25 08:29 Metformin Hcl 500 Mg Tablet PO 500 mg DAILY [facility] Administration Ondansetron HCl 4 mg 05/02/25 13:54 Ondansetron Inj 4 Mg/2 Ml Vial IV PUSH Q4H PRN Nausea Perflutren Lipid Microsphere 0 ml 05/02/25 18:53 Perflutren Lipid Microspheres 1.5 Ml Vial Diluted To 10 Ml Total Volume IV PUSH 05/05/25 18:53 ONCE PRN adequate visualization Protocol Tamsulosin HCl 0.4 mg 05/03/25 09:00 05/03/25 08:30 Tamsulosin Hcl 0.4 Mg Capsule PO 0.4 mg QAM [facility]A Administration Radiology Results: ITS Impressions Chest/Abdomen/Pelvis CTA 05/02/25 10:45 IMPRESSION: 1. No central or large pulmonary emboli. 2. Mild to moderate cardiomegaly. Mildly enlarged central and main pulmonary arteries which could be associated pulmonary arterial hypertension. No gross acute intrathoracic process. 3. Mildly distended urinary bladder with possible mild wall thickening. Correlate with urinalysis. 4. No acute surgical abnormality seen in the abdomen or pelvis. Chest X-Ray 05/03/25 06:06 IMPRESSION: 1. No acute cardiopulmonary findings given portable technique. Labs Labs: Laboratory Results - last 24 hr 05/03/25 05/04/25 20:51 07:38 POC Capillary Glucose 131 H 110 H Quality VTE Prophylaxis VTE prophylaxis: mechanical ordered
[2025-05-04 08:44] LABS: Hematocrit 37.2 % (42.0-52.0); Hemoglobin 12.3 g/dL (14.0-18.0); Immature Granulocyte Percent A 0.4 % (0-0.5); Lymphocytes Absolute Auto 0.65 K/mm3 (0.9-3.2); Mean Corpuscular HGB Conc 33.1 g/dl (32-36); Mean Corpuscular Hemoglobin 27.5 pg (26-34); Mean Corpuscular Volume 83.0 fl (80-100); Nucleated Red Blood Cells Absolute Auto 0.000 K/mm3 (0.0-0.012); Nucleated Red Blood Cells Perc 0.0 % (0.0-0.2); Platelet Count Result 154 k/mm3 (150-375); Red Blood Count 4.48 M/mm3 (4.6-6.20); White Blood Count 5.3 K/mm3 (4.5-10.0)
[2025-05-04 09:05] LABS: Alanine Aminotransferase 33 U/L (6-50); Albumin Level 3.8 g/dL (3.5-5.1); Alkaline Phosphatase 86 U/L (38-126); Anion Gap 8 mmol/L (4-12); Aspartate Amino Transferase 40 U/L (17-59); Bilirubin,Total 0.8 mg/dL (0.2-1.3); Blood Urea Nitrogen 9 mg/dL (9-20); Calcium 9.0 mg/dL (8.4-10.2); Carbon Dioxide 23 mmol/L (22-30); Chloride 106 mmol/L (98-107); Estimated CRCL calculation 88 ml/min; Estimated Glomerular Filt Rate > 60; Glucose 97 mg/dL (65-110); Potassium 3.9 mmol/L (3.4-5.0); Sodium 137 mmol/L (137-145); Total Protein 7.0 g/dL (6.3-8.2)
[2025-05-04] MEDS: ATORVASTATIN 40 MG TABLET 80 MG PO (10:09)
[2025-05-04] MEDS: TAMSULOSIN HCL 0.4 MG CAPSULE PO (10:19)
--- NOTE | 2025-05-04 11:00 | PC.NURSE ---
Refused IV restart. Stated, I'm wanting to be discharged. KRISTEN Kim made aware.
--- NOTE | 2025-05-04 12:15 | P.DS_ITS ---
DS: Admitting Diagnosis Discharge Date 05/04/2025 Admitting Diagnosis Sepsis, UTI, Prostatitis DS: Discharge Diagnosis Discharge Diagnosis (1) Sepsis: Qualifiers: Sepsis acute organ dysfunction status: without acute organ dysfunction Sepsis type: sepsis due to unspecified organism Qualified Code(s): A41.9 - Sepsis, unspecified organism Code(s): A41.9 - Sepsis, unspecified organism Status: Acute (2) Acute UTI: Code(s): N39.0 - Urinary tract infection, site not specified Status: Acute (3) Urinary retention: Code(s): R33.9 - Retention of urine, unspecified Status: Acute (4) Enlarged pulmonary artery: Code(s): I28.8 - Other diseases of pulmonary vessels Status: Acute (5) Prediabetes: Code(s): R73.03 - Prediabetes Status: Chronic (6) Prostatitis: Code(s): N41.9 - Inflammatory disease of prostate, unspecified Status: Acute DS: Summary Hospital Course Reason for hospitalization: Dizziness, Chills, Shortness of Breath Hospital Course: The patient is a 44-year-old male with a history of hypertension, prior urinary retention, prediabetes, and prior ME (2022) who presented on 05/02/25 with acute onset dizziness, chills, shortness of breath, and nausea. On arrival, he was febrile to 103.6?F, tachycardic to the 130s, and found to have leukopenia (WBC 3.3) with an elevated lactate of 2.6, meeting sepsis criteria. Initial workup revealed a urinary tract infection as the likely source, with UA showing positive nitrites, leukocyte esterase, >100 WBCs, and heavy bacteria. CTA chest/abdomen/pelvis ruled out pulmonary embolism and acute intra-abdominal pathology but noted [id number] cardiomegaly and mildly enlarged pulmonary arteries. Chest X-ray showed no acute cardiopulmonary process. The patient also had acute urinary retention with approximately 300 mL retained but declined Hughes catheter placement. He was started on IV fluids and broad-spectrum antibiotics with ceftriaxone, as well as tamsulosin for urinary retention. Lactate normalized following fluid resuscitation, and fevers resolved with antipyretics. Procalcitonin was significantly elevated at 58.4, supporting a bacterial source. Over the hospital course, he remained hemodynamically stable with improving tachycardia, no recurrent hypoxia, and resolution of shortness of breath, which was felt to be secondary to fever and tachycardia. Renal function showed a mild, stable creatinine elevation likely related to infection and volume status and was managed with continued IV fluids. Blood and urine cultures remained pending at the time of this summary. An echocardiogram was ordered to further evaluate cardiomegaly and enlarged pulmonary arteries. He will be instructed to follow-up with his primary care physician regarding the results of this echocardiogram. Overall, the patient demonstrated clinical improvement with treatment for sepsis secondary to UTI and continued inpatient monitoring. On 05/04, despite blood and urine cultures still pending, the patient wished to be discharged at this time. Patient is afebrile without leukocytosis, is A&O x3 and is otherwise hemodynamically stable. Discussed with patient the risks at length for being discharged at this time prior to culture results have resulted, and patient continues to endorse wanting to be discharged at this time. He is able to intake oral medications without difficulty and will follow-up with his primary care physician in the outpatient setting. He will also be instructed to follow-up with urology regarding his urinary retention, which is likely secondary to prostatitis. Given that the urine culture had not returned, had an in-depth conversation with patient in terms of discharge. Discussed with patient that if the urine culture comes back and shows resistance to the oral antibiotic that they were discharged on they will either receive a phone call and a new oral antibiotic will be sent to the pharmacy or they will have to come back to the hospital for IV antibiotics if no oral option is available. Patient stated understanding and was agreeable with discharge at this time. Status at Discharge Functional status at discharge: independent ambulation Overall status at discharge: patient is back to baseline Time Spent with Patient Time attestation: Total time spent providing and/or coordinating discharge services: 30 Exam Const: Other: , male, modestly ill-appearing Resp: Effort & Inspection: normal respiratory effort Auscultation: clear to auscultation bilaterally Cardio: Rate: regular rate Rhythm: regular rhythm Other: S1-S2 present without murmur, rub, ectopy GI: Other: Abdomen soft, nondistended, nontender. Normoactive bowel sounds in all quadrants. Neuro: Other: A&O x4 Psych: Other: Good insight and judgment, pleasant DS: Data Data Completed and Pending Labs on day of discharge: Labs from last 24 hours 05/04/25 05/04/25 05/04/25 11:43 08:35 07:38 WBC 5.3 RBC 4.48 L Hgb 12.3 L Hct 37.2 L MCV 83.0 MCH 27.5 MCHC 33.1 RDW 15.0 H Plt Count 154 MPV 9.5 Immature Gran % (Auto) 0.4 Neut % (Auto) 75.6 H Lymph % (Auto) 12.3 L Harmon % (Auto) 9.6 H Eos % (Auto) 1.7 Baso % (Auto) 0.4 Lymph # (Auto) 0.65 L Harmon # (Auto) 0.5 Eos # (Auto) 0.1 Baso # (Auto) 0.0 Abs Immat Gran (auto) 0.02 Absolute Neuts (auto) 4.0 Absolute Nucleated RBC 0.000 Nucleated RBC % 0.0 Sodium 137 Potassium 3.9 Chloride 106 Carbon Dioxide 23 Anion Gap 8 BUN 9 D Creatinine 1.08 Estim Creat Clear Calc 88 Estimated GFR > 60 Glucose 97 POC Capillary Glucose 126 H 110 H Calcium 9.0 Total Bilirubin 0.8 AST 40 ALT 33 Alkaline Phosphatase 86 Total Protein 7.0 Albumin 3.8 05/03/25 20:51 WBC RBC Hgb Hct MCV MCH MCHC RDW Plt Count MPV Immature Gran % (Auto) Neut % (Auto) Lymph % (Auto) Harmon % (Auto) Eos % (Auto) Baso % (Auto) Lymph # (Auto) Harmon # (Auto) Eos # (Auto) Baso # (Auto) Abs Immat Gran (auto) Absolute Neuts (auto) Absolute Nucleated RBC Nucleated RBC % Sodium Potassium Chloride Carbon Dioxide Anion Gap BUN Creatinine Estim Creat Clear Calc Estimated GFR Glucose POC Capillary Glucose 131 H Calcium Total Bilirubin AST ALT Alkaline Phosphatase Total Protein Albumin Preliminary micro results at discharge 05/02/25 09:50 - Preliminary Urine Clean Catch Discharge Plan Discharge Attending physician on discharge: Lewis Price Consulting providers: Julio Mercado Discharging Clinician: Julio Mercado Anticipated Discharge Date/Time: 05/04/25 12:03 Patient Disposition: Home Activity: as tolerated Diet: regular Discharge Instructions: Discharge disposition: Home Take medications as prescribed. You will be prescribed Levofloxacin 750mg to be taken once daily for 2 weeks for your prostatitis. Official urine and blood cultures have not returned at time of discharge: If the culture returns and the antibiotic you were discharged on does not cover the infection you will receive a phone call and a new prescription will be sent to your pharmacy. If no oral option is available to treat the infection you will receive a phone call to return to the emergency department for IV antibiotics. Monitor blood pressures Take caution while standing, rising, or moving Change positions slowly taking a break between each position change If you standing feel dizzy sit back down and take a break Encouraged to continue with yearly vaccinations Return to the emergency department if you develop sudden shortness of breath, chest pain, nausea, vomiting, upset stomach or intractable diarrhea Return to the emergency department if you develop fever greater than 101.5 Follow-up with the primary care physician within 1-2 weeks Follow-up with Dr. Nathan of Urology for further possible workup/management of prostatitis. Thank you for [facility] for your healthcare needs Patient Instructions: Antibiotic Form Patient Language: Irish Stand Alone Forms: General Discharge Information Follow-up/Referrals: Elizabet,MD Taryn [Primary Care Provider, Unknown] Jaya Nathan MD [Physician, Urology] Discharge Medications: New ondansetron 4 mg tablet,disintegrating 4 mg PO Q8H PRN (Reason: nausea and vomiting) Qty: 14 0RF tamsulosin 0.4 mg capsule 0.4 mg PO DAILY 14 Days Qty: 14 0RF levofloxacin 750 mg tablet 750 mg PO DAILY Qty: 14 0RF Continued atorvastatin 80 mg tablet 80 mg PO DAILY metformin 500 mg tablet 500 mg PO DAILY lisinopril 20 mg tablet 20 mg PO DAILY azelastine 137 mcg (0.1 %) spray,non-aerosol 1 spray INTRANASAL Q12H PRN (Reason: congestion) Date of admission: 05/03/25 15:47 Primary Care Provider: BlackTaryn Admitting Provider: Lewis Price Attending physician on admission: Lewis Price Condition: Stable Quality VTE Prophylaxis VTE prophylaxis: mechanical ordered
--- NOTE | 2025-05-08 13:26 | PC.NURSE ---
Urine cx shows Aerococcus urinae. Results shown to KRISTEN Carrizales
== END 2025-05-04 12:45 | disposition home or self-care (01) | DRG 872 ==
LOC: ANHED 13:08 → ANH3MEDSUR 15:08
PROVIDERS: Nurse Practitioner; Student in an Organized Health Care Education/Training Program; Admitting Provider General Practice; Emergency Provider Emergency Medicine; PCP Internal Medicine; Visit Provider Physician Assistant
DX: A41.9 Sepsis, unspecified organism (principal); N39.0 Urinary tract infection, site not specified; I10 Essential (primary) hypertension; R33.9 Retention of urine, unspecified; I28.8 Other diseases of pulmonary vessels; R73.03 Prediabetes; I25.2 Old myocardial infarction
CPT/HCPCS: 36415; 36600; 71045; 71275; 74177; 80048; 80053; 81001; 82805; 82948; 83605; 83735; 84145; 84443; 85018; 85025; 85380; 85610; 85730; 87040; 87086; 87491; 87591; 87637; 93005; 93306; 94640; 96361; 96365; 96375; 96376; 99285; A9270; G0378; J0360; J0696; J2405; J7030; J7120; Q9967